=== PATIENT | female | born 1995 | race Caucasian/White ===

== ENCOUNTER 2016-11-05 07:21 | Inpatient (IN) | payer MEDICAID ==
[~2016-11-05] VITALS: Ht 167.6 cm; Wt 112.0 kg
[2016-11-05 07:15] VITALS: BP 128/87
[~2016-11-05 07:21] MED LIST: AMOX-355 PO; CEPH500C PO; HYDR-3812 PO; ONDA4TAB11 PO; SERT25TA5 PO; TRAM50TA2 PO
[2016-11-05] MEDS ORDERED: CITRIC ACID/SOB CIT (BICITRA) 30 ML UDC PO ONE (07:30)
[2016-11-05] MEDS ORDERED: METOCLOPRAMIDE INJ 10 MG/2 ML (REGLAN) IV ONE (07:30)
[2016-11-05] MEDS ORDERED: FAMOTIDINE 20MG/2ML IV (PEPCID) IV ONE (07:30)
[2016-11-05] MEDS: LACTATED RINGERS 1,000 ML IV PRN ×2 (08:02→09:00)
[2016-11-05] MEDS ORDERED: fentaNYL INJECTION 100 MCG/2 ML AMP ONE (08:06)
[2016-11-05 08:10] VITALS: BP 134/84
--- NOTE | 2016-11-05 08:13 | History & Physical-OB ---
OB - Chief Complaint & HPI Date Date of Admission: Date of Admission: Nov 05, 2016 at 7:21 am Chief Complaint/History OB-Reason for Admission/Chief: Section Hx : 2 Hx Para: 1 Expected Date of Delivery: Nov 11, 2016 Indication for : desires repeat Admission Nurse Assessment Rev: Yes History of Labs O neg Antibody neg RI RPR NR HBsAg NR HIV NR GC neg Allergies and Home Medications Allergies Uncoded Allergies: ADVAIR (Allergy, Mild, 03/27/16) Home Medications Sertraline HCl 25 Mg Tablet 25 MG PO HS (Reported) OB - History Hx of Present Care: Yes Ultrasounds: Normal mid trimester US Obstetrical Complications: None Medical Complications: None Delivery History Hx Blood Disorders: No Adverse Rxn to Tranfusion: No Patient Past Medical History anxiety/depression Social History/Family History HIV/AIDS: No Sexually Transmitted Disease: No OB - Admission Exam Physical Exam HEENT: NCAT Heart: Rhythm Normal Lungs: Clear Abdomen: Gravid Extremities: Normal Reflexes: Normal Heart Rate: 130's Accelerations: Accelerations Present Decelerations: No Decelerations Shelter Variability: Average (6-25) Contractions on Admission: >10 Minutes Apart Intensity: Mild OB - Assessment/Plan/Diagnosis Assessment Assessment: section Plan Plan: Section Discharge Diagnosis Diagnosis: 21 yo @ 39 weeks previous Rh NICOLAS Brown DO Nov 05, 2016 8:13 am
[2016-11-05] MEDS ORDERED: ceFAZolin 2 GM IV (SDC ONLY) 50 ML IV NR (08:15)
[2016-11-05 08:24] LABS: BASOPHILS % (AUTO) 0 % (0-10); EOSINOPHILS # (AUTO) 0.1 10^3/uL (0.0-0.3); EOSINOPHILS % (AUTO) 1 % (0-10); LYMPHOCYTES # (AUTO) 2.6 X 10^3 (1.0-4.0); LYMPHOCYTES % (AUTO) 19 % (12-44); MEAN CORPUSCULAR HEMOGLOBIN 28 PG (25-34); MEAN CORPUSCULAR HGB CONC 33 G/DL (32-36); MEAN CORPUSCULAR VOLUME 84 FL (80-99); MEAN PLATELET VOLUME 11.4 FL (7.4-10.4); MONOCYTES # (AUTO) 0.9 X 10^3 (0.0-1.0); MONOCYTES % (AUTO) 7 % (0-12); NEUTROPHILS # (AUTO) 9.9 X 10^3 (1.8-7.8); NEUTROPHILS % (AUTO) 73 % (42-75); PLATELET COUNT 189 10^3/uL (130-400); RED BLOOD COUNT 4.03 10^6/uL (4.35-5.85); RED CELL DISTRIBUTION WIDTH 13.6 % (10.0-14.5); WHITE BLOOD COUNT 13.5 10^3/uL (4.3-11.0)
[2016-11-05] MEDS ORDERED: CATHETER FLUSH 10 ML SYR IV PRN (08:30)
[2016-11-05] MEDS ORDERED: OXYTOCIN/NORMAL SALINE 1,000 ML IV ONE (08:59)
[2016-11-05] MEDS ORDERED: FLU TRIvalent (5 YOA+) 2016-17 (AFLURIA) 0.5 ML IM ONE (09:30)
[2016-11-05] MEDS ORDERED: KETOROLAC 30 MG/ML VIAL ONE (09:32)
[2016-11-05] MEDS ORDERED: OXYTOCIN/NORMAL SALINE 500 ML IV SCH (09:43)
[2016-11-05] MEDS ORDERED: ONDANSETRON 4 MG/2 ML (SDV) Z0FRAN IVP PRN (09:45)
[2016-11-05] MEDS ORDERED: MEASLES,MUMPS,RUBELLA 1 EA INJ SC SCH (09:45)
[2016-11-05] MEDS ORDERED: TETANUS,DIPTH,PERTUSS P/F (BOOSTRIX) 0.5 ML VIAL IM SCH (09:45)
[2016-11-05] MEDS ORDERED: HYDROmorphone (DILAUDID) 2 MG/ML VIAL IVP PRN (09:45)
--- NOTE | 2016-11-05 09:45 | Progress Note-Post Operative ---
Post-Operative Progess Note Asic Verification Engineer Ray Buenrostro MD Pre-Operative Diagnosis Previous Post-Operative Diagnosis same Post-Op Procedure Note Date of Procedure: Nov 05, 2016 Name of Procedure: RLTCS Procedure Note/Findings see dictation Anesthesia Type Spinal Estimated blood loss (mL): 400 NICOLAS GARVIN DO Nov 05, 2016 09:45
[2016-11-05] MEDS ORDERED: DOCU100C37 PO (09:55)
[2016-11-05] MEDS ORDERED: HYDR-3812 PO (09:55)
[2016-11-05] MEDS ORDERED: IBUP-1773 PO (09:55)
--- NOTE | 2016-11-05 09:56 | Discharge Inst-Women's Service ---
Discharge Inst-Women's Serv Depart Medication/Instructions New, Converted or Re-Newed RX: RX on Chart Consults/Follow Up Additional Follow Up: Yes Orders/Referrals Dr. Carreon in 7-[address] Buenrostro in 6 weeks Activity Activity: Activity as Tolerated Driving Instructions: No Driving for 1 Week NO SMOKING: NO SMOKING Nothing Inside Vagina: No Douching, No [place], No Tampons Diet Discharge Diet: No Restrictions Symptoms to Report to : Bleeding Excessive, Pain Increased, Fever Over 101 Degrees F, Vaginal Bleeding Increase, Questions/Concerns Skin/Wound Care Infection Signs and Symptoms: Increased Redness, Foul Odor of Wound, Increased Drainage, Skin Itchy or Has a Rash, Increased Swelling, Temperature Above 101 F Operative Area Clean and Dry: Keep Incision Clean/Dry Stitches/Philip/Dermabond: Care of Stitches Bathing Instructions: NICOLAS Perez DO Nov 05, 2016 9:56 am
[2016-11-05] MEDS: KETOROLAC 30 MG/ML VIAL IVP SCH ×3 (10:04→21:43)
[2016-11-05 14:00] VITALS: BP 141/90
[2016-11-05] MEDS: HYDROcodone/APAP 5 MG/325 MG (LORTAB) TAB PO PRN ×2 (16:01→21:43)
[2016-11-05 17:30] VITALS: BP 125/82
[2016-11-05 19:52] VITALS: BP 115/73
[2016-11-05] MEDS: DOCUSATE SODIUM 100 MG (COLACE) CAP PO SCH (21:42)
[2016-11-05] MEDS: CATHETER FLUSH 10 ML SYR IV SCH (22:00)
[2016-11-06 00:10] VITALS: BP 126/80
[2016-11-06 04:15] VITALS: BP 122/77
[2016-11-06] MEDS: KETOROLAC 30 MG/ML VIAL IVP SCH (04:16)
[2016-11-06] MEDS: CATHETER FLUSH 10 ML SYR IV SCH (04:16)
[2016-11-06 05:49] LABS: BASOPHILS % (AUTO) 0 % (0-10); EOSINOPHILS # (AUTO) 0.2 10^3/uL (0.0-0.3); EOSINOPHILS % (AUTO) 2 % (0-10); LYMPHOCYTES # (AUTO) 2.9 X 10^3 (1.0-4.0); LYMPHOCYTES % (AUTO) 23 % (12-44); MEAN CORPUSCULAR HEMOGLOBIN 28 PG (25-34); MEAN CORPUSCULAR HGB CONC 33 G/DL (32-36); MEAN CORPUSCULAR VOLUME 85 FL (80-99); MEAN PLATELET VOLUME 11.2 FL (7.4-10.4); MONOCYTES # (AUTO) 1.1 X 10^3 (0.0-1.0); MONOCYTES % (AUTO) 9 % (0-12); NEUTROPHILS # (AUTO) 8.3 X 10^3 (1.8-7.8); NEUTROPHILS % (AUTO) 66 % (42-75); PLATELET COUNT 150 10^3/uL (130-400); RED BLOOD COUNT 3.39 10^6/uL (4.35-5.85); RED CELL DISTRIBUTION WIDTH 13.6 % (10.0-14.5); WHITE BLOOD COUNT 12.5 10^3/uL (4.3-11.0)
[2016-11-06] MEDS: HYDROcodone/APAP 5 MG/325 MG (LORTAB) TAB PO PRN ×4 (06:29→19:41)
[2016-11-06 09:40] VITALS: BP 129/84
[2016-11-06] MEDS: DOCUSATE SODIUM 100 MG (COLACE) CAP PO SCH ×2 (09:45→19:41)
[2016-11-06] MEDS: IBUPROFEN 600 MG (MOTRIN) TAB PO SCH ×3 (09:45→22:00)
--- NOTE | 2016-11-06 10:04 | OPERATIVE REPORT ---
PROCEDURE PHYSICIAN: JAVIER CARREON DATE OF PROCEDURE: 11/05/2016 PREOPERATIVE DIAGNOSIS: 1. 21-year-old G2, P1 at 39 weeks gestation. 2. Previous section. POSTOPERATIVE DIAGNOSES: 1. 21-year-old G2, P1, at 39 weeks gestation. 2. Previous section. 3. Breech presentation. PROCEDURE: Repeated low transverse section. SURGEON: Dr. Javier Carreon. ROLLER SKATE ASSEMBLER: Dr. Ray Buenrostro ANESTHESIA: Spinal. ESTIMATED BLOOD LOSS: 400 mL. URINE OUTPUT: 50 mL, clear at the end of the procedure. FLUIDS: 900 mL lactated ringer solution. FINDINGS: Findings is a live female infant weighing 8 pounds, 2 ounces, Apgars of 9 and 9. Grossly normal appearing uterus, bilateral fallopian tubes, and ovaries. INDICATIONS FOR THE PROCEDURE: This 21-year-old female was a consultation to me from Dr. Buenrostro for repeat delivery at 34 weeks. I saw the patient and reviewed the indications for repeat and that being a previous . However, the patient had a secondary indication for and that was breech presentation which was also the case with her first . I discussed with the patient risks of the procedure in detail including risk of bleeding, infection, damaging any of the surrounding structures, including but not limited to the bowel, bladder, ureter, kidneys, risk for blood transfusion, risk for hysterectomy, risk of possible loss of fertility. After everything was discussed with the patient and all of her questions were answered, she was agreeable to proceed. Consent was obtained in the preoperative area. The patient was taken to the operating room. OPERATIVE REPORT IN DETAIL: Once in the operating room, spinal analgesia was found to be adequate. She was placed in supine position with leftward tilt, prepped and draped in the normal sterile fashion. A timeout is performed. I then test anesthesia and after it is noted to be adequate, I proceed with making a Pfannenstiel skin incision through the previously existing scar using a knife and carried down to underlying fascia using Bovie cautery. The fascial incision was extended laterally using Bovie cautery. The superior aspect of the fascial incision was then grasped using Domingo clamps, tented upward and dissected off the underlying rectus muscle. The inferior aspect of the fascial incision was then grasped her with Domingo clamps, tented upward and dissected off the underlying rectus muscles. The rectus muscles are dissected in midline using Hutton scissors which exposes the extra peritoneal fatty tissue. I bluntly dissect through this until the peritoneum is accessed by blunt dissection. I extend the peritoneal incision superior and inferiorly with good visualization of underlying bowel and bladder using the Metzenbaum scissors. I then placed the Franco ring retractor in the peritoneal incision which offers excellent lateral sidewall retraction. I proceed with my incision through the lower uterine segment of the uterus using a knife just to the vesicouterine peritoneum and bluntly dissect the vesicouterine peritoneum off the lower uterine segment. I proceed with my myotomy until membranes are visualized. I extend the uterine incision laterally and superiorly using banded scissors. I then perform amniotomy using an Allis clamp. Clear fluid is noted. The is found in the kallie breech presentation. Its buttocks are lifted up to the incision. With gentle fundal pressure the 's buttocks is delivered through the incision and the infant is delivered up to its chest where the legs are able to be reduced around the body. I then deliver the arms by sweeping them across the 's chest and then with gentle extension of the baby's neck, I allow for flexion and delivery of the infants head through the incision where the 's nares and oropharynx are then bulb suctioned by Dr. Buenrostro. The cord is doubly clamped and cut and the infant is then taken off the operative field by Dr. Buenrostro for pediatric assessment. The cord blood was collected, three vessel cord with intact placenta is delivered spontaneously thereafter. IV Pitocin is initiated to facilitate uterine contraction. The uterine fundus becomes firmer by manual massage. The uterus is then exteriorized and cleared of all endometrial, clots and debris. I then close the uterus incision using 0 Vicryl suture in a running lock fashion. A second layer of imbricating 0 Monocryl is placed. Excellent hemostasis is noted after doing so. I then placed the uterus back within the pelvis, I copiously irrigate the pelvis using normal saline. There was no active bleeding noted from any of my dissection planes. I place intercede antiadhesive over my low transverse incision and proceed with closing the peritoneum using 3-0 Vicryl suture in a running fashion. The rectus muscles are reapproximated using 3-0 Vicryl suture in an interrupted fashion. The fascia was reapproximated using 0 Vicryl suture in a running fashion. Subcutaneous tissues were reapproximated using 3-0 plain in an interrupted subcutaneous stitch and skin was reapproximated using 4-0 Monocryl in running, subcuticular. Quarter-inch Steri-Strips were placed on the incision and this is dressed with a Telfa and an ADD and white tape. Sousa catheter was left in place to be taken out in the recovery area. The patient tolerated the procedure well and was taken to the recovery area in stable condition. Lap and sponge counts were correct at the end of procedure. Instrument count is correct as well. 2 grams Ancef were given preoperatively for infection prophylaxis. Job ID: [id number] Dictated Date: 11/05/2016 09:50:20 Inner Tube Tuber Machine Operator Date: 11/06/2016 09:46:15 / mook
--- NOTE | 2016-11-06 10:17 | Postpartum Progress Note ---
Post Op Post-operative Day #1 s/p RLTCS, repeat and breech. 400 ml blood los Subjective: Patient is without complaints. Ambulating, voiding after gonzalez removed. Tolerating a regular diet without nausea or vomiting. Normal lochia. Pain is well controlled with oral pain medications. Passing flatus. bottle feeding. Objective: Vital Sign - Last 24 Hours 11/05/16 11/05/16 11/05/16 11/05/16 12:11 14:00 17:30 19:52 Temp 97.0 97.3 97.6 Pulse 111 85 80 Resp 18 18 16 B/P 141/90 125/82 115/73 Pulse Ox 96 98 97 O2 Delivery Room Air Room Air Room Air Room Air 11/06/16 11/06/16 00:10 04:15 Temp 97.4 96.9 Pulse 79 88 Resp 16 18 B/P 126/80 122/77 Pulse Ox 96 97 O2 Delivery Room Air Room Air Intake and Output 11/05/16 11/05/16 11/06/16 15:00 23:00 07:00 Intake Total 1150 ml 1200 ml 1300 ml Output Total 1850 ml 350 ml 1500 ml Balance -700 ml 850 ml -200 ml Laboratory Tests Test 11/06/16 05:31 Range/Units Basophils # (Auto) 0.0 0.0-0.1 10^3/uL Basophils (%) (Auto) 0 0-10 % Eosinophils # (Auto) 0.2 0.0-0.3 10^3/uL Eosinophils (%) (Auto) 2 0-10 % Hematocrit 29 L 35-52 % Hemoglobin 9.4 L 11.5-16.0 G/DL Lymphocytes # (Auto) 2.9 1.0-4.0 X 10^3 Lymphocytes (%) (Auto) 23 12-44 % Mean Corpuscular Hemoglobin 28 25-34 PG Mean Corpuscular Hemoglobin Concent 33 32-36 G/DL Mean Corpuscular Volume 85 80-99 FL Mean Platelet Volume 11.2 H 7.4-10.4 FL Monocytes # (Auto) 1.1 H 0.0-1.0 X 10^3 Monocytes (%) (Auto) 9 0-12 % Neutrophils # (Auto) 8.3 H 1.8-7.8 X 10^3 Neutrophils (%) (Auto) 66 42-75 % Platelet Count 150 130-400 10^3/uL Red Blood Count 3.39 L 4.35-5.85 10^6/uL Red Cell Distribution Width 13.6 10.0-14.5 % White Blood Count 12.5 H 4.3-11.0 10^3/uL Physical Exam: General - Alert and oriented, no apparent distress Abdomen - Soft, appropriately tender to palpation, non-distended, fundus firm at umbilicus Incision - clean, dry and intact; no erythema or induration, no drainage Extremities - no edema, negative Chandu's bilaterally Assessment: 1. post-operative day # 1, status post RLTCS. Recovering well, hemodynamically stable 2. Acute blood loss anemia Plan: Routine post-operative care. Encourage breast feeding. Encourage ambulation. VTE prophylaxis: SCDs. Ferrous sulfate supplementation. Plan for discharge tomorrow. Will monitor BP but currently asymptomatic despite blood loss. Iron replaced. Vitals - Labs Vital Signs - I&O Vital Signs Date Time Temp Pulse Resp B/P Pulse Ox O2 Delivery O2 Flow Rate FiO2 11/06/16 04:15 96.9 88 18 122/77 97 Room Air 11/06/16 00:10 97.4 79 16 126/80 96 Room Air 11/05/16 19:52 97.6 80 16 115/73 97 Room Air 11/05/16 17:30 97.3 85 18 125/82 98 Room Air 11/05/16 14:00 97.0 111 18 141/90 96 Room Air 11/05/16 12:11 Room Air I & O 11/06/16 07:00 Intake Total 3650 ml Output Total 3700 ml Balance -50 ml Labs Laboratory Tests 11/06/16 05:31: Basophils # (Auto) 0.0, Basophils (%) (Auto) 0, Eosinophils # (Auto) 0.2, Eosinophils (%) (Auto) 2, Hematocrit 29L, Hemoglobin 9.4L, Lymphocytes # (Auto) 2.9, Lymphocytes (%) (Auto) 23, Mean Corpuscular Hemoglobin 28, Mean Corpuscular Hemoglobin Concent 33, Mean Corpuscular Volume 85, Mean Platelet Volume 11.2H, Monocytes # (Auto) 1.1H, Monocytes (%) (Auto) 9, Neutrophils # ( Auto) 8.3H, Neutrophils (%) (Auto) 66, Platelet Count 150, Red Blood Count 3.39L , Red Cell Distribution Width 13.6, White Blood Count 12.5H KAYLYN TORRES DO Nov 06, 2016 10:17
[2016-11-06] MEDS ORDERED: PATIENT MAY USE OWN MED,SINGLE MED PO SCH (10:30)
[2016-11-06 15:15] VITALS: BP 146/87
[2016-11-06] MEDS: FERROUS SULF 325 MG (IRON) TAB PO SCH (19:41)
[2016-11-06] MEDS ORDERED: SERTRALINE 50 MG (ZOLOFT) TABLET PO SCH (21:00)
[2016-11-06 22:00] VITALS: BP 128/86
[2016-11-07 04:00] VITALS: BP 122/80
[2016-11-07] MEDS: IBUPROFEN 600 MG (MOTRIN) TAB PO SCH ×3 (04:01→17:28)
[2016-11-07 09:00] VITALS: BP 109/78
--- NOTE | 2016-11-07 09:56 | Postpartum Progress Note ---
Post Op Post-operative Day #2 Subjective: Patient is without complaints. Ambulating, voiding after gonzalez removed. Tolerating a regular diet without nausea or vomiting. Normal lochia. Pain is well controlled with oral pain medications. Passing flatus. bottle feeding. No current complaints. Objective: Vital Sign - Last 24 Hours 11/06/16 11/06/16 11/07/16 15:15 22:00 04:00 Temp 98.6 97.7 97.5 Pulse 90 89 95 Resp 18 18 18 B/P 146/87 128/86 122/80 Pulse Ox 98 98 97 O2 Delivery Room Air Room Air Room Air Intake and Output 11/06/16 11/06/16 11/07/16 15:00 23:00 07:00 Intake Total 900 ml 750 ml Output Total 1150 ml Balance -250 ml 750 ml Physical Exam: General - Alert and oriented, no apparent distress Abdomen - Soft, appropriately tender to palpation, non-distended, fundus firm at umbilicus Incision - clean, dry and intact; no erythema or induration, no drainage Extremities - no edema, negative Chandu's bilaterally Assessment: 1. post-operative day # 1 status post RLTCS. Recovering well, hemodynamically stable 2. Acute blood loss anemia Plan: Routine post-operative care. Encourage breast feeding. Encourage ambulation. VTE prophylaxis: SCDs. Ferrous sulfate supplementation. Plan for discharge today Vitals - Labs Vital Signs - I&O Vital Signs Date Time Temp Pulse Resp B/P Pulse Ox O2 Delivery O2 Flow Rate FiO2 11/07/16 04:00 97.5 95 18 122/80 97 Room Air 11/06/16 22:00 97.7 89 18 128/86 98 Room Air 11/06/16 15:15 98.6 90 18 146/87 98 Room Air I & O 11/07/16 07:00 Intake Total 1650 ml Output Total 1150 ml Balance 500 ml KAYLYN TORRES DO Nov 07, 2016 09:56
[2016-11-07] MEDS: DOCUSATE SODIUM 100 MG (COLACE) CAP PO SCH (10:40)
[2016-11-07] MEDS: FERROUS SULF 325 MG (IRON) TAB PO SCH ×2 (10:41→19:31)
[2016-11-07] MEDS: HYDROcodone/APAP 5 MG/325 MG (LORTAB) TAB PO PRN ×3 (10:42→19:31)
[2016-11-07] MEDS ORDERED: FERR-74 PO (11:17)
[2016-11-07 15:05] VITALS: BP 118/81
== END 2016-11-07 19:45 | disposition home or self-care (01) | DRG 766 ==
LOC: LDRP 07:21
PROVIDERS: ADMIT Obstetrics & Gynecology; ATTEND Obstetrics & Gynecology
PROC: 10D00Z1 Extraction of Products of Conception, Low, Open Approach (ICD-10-PCS; principal; 2016-11-05 08:58)
DX: O64.1XX0 Obstructed labor due to breech presentation, not applicable or unspecified (principal); O34.211 Maternal care for low transverse scar from previous cesarean delivery; Z37.0 Single live birth; Z3A.39 39 weeks gestation of pregnancy
CPT/HCPCS: 36415; 83033; 85025; 86850; 86900; 86901; 94664

== ENCOUNTER 2016-11-24 10:10 | Emergency (ER) | payer MEDICAID ==
[~2016-11-24] VITALS: Ht 167.6 cm; Wt 112.0 kg
[~2016-11-24 10:10] MED LIST changes: +DOCU100C37 PO; +FERR-74 PO; +IBUP-1773 PO
[2016-11-24] MEDS ORDERED: LEVOFLOXACIN 500 MG TAB (LEVAQUIN) PO STA (11:25)
[2016-11-24] MEDS ORDERED: HYDROcodone/APAP 5 MG/325 MG (LORTAB) TAB PO STA (11:25)
[2016-11-24] MEDS ORDERED: metroNIDAZOLE 500 MG (FLAGYL) TAB PO STA (11:25)
--- NOTE | 2016-11-24 11:33 | ED General ---
General Chief Complaint: Skin/Wound Problems Stated Complaint: TAILBONE ABSCESS Nursing Triage Note: PT. STATES RANGEL WEIR HURTS MORE TODAY ET HAS LOTS OF PRESSURE TO AREA. Nursing Sepsis Screen: No Definite Risk Source of Information: Patient, Family Exam Limitations: No Limitations History of Present Illness Time Seen by Provider: 11:27 Initial Comments 21 yo female patient presents to the ED with c/o recurrent pilonidal abscess. Onset 3-4 days. Denies fever, chills, drainage. Patient is 3 wks . Denies . Timing/Duration: 3-4 Days Modifying Factors: worse with Other (sitting, palpation.) Allergies and Home Medications Allergies Coded Allergies: fluticasone (Unverified Allergy, Unknown, 11/05/16) salmeterol (Unverified Allergy, Unknown, 11/05/16) Home Medications Ciprofloxacin HCl 500 Mg Tablet #14 500 MG PO BID Prescribed by: TIKA HERNANDEZ on 11/24/16 1142 Docusate Sodium 100 Mg Capsule #40 100 MG PO BID PRN PRN CONSTIPATION Prescribed by: NICOLAS GARVIN on 11/05/16 0955 Ferrous Sulfate 325 Mg Tablet #120 325 MG PO BID WITH MEALS Prescribed by: KAYLYN TORRES on 11/07/16 1117 Ibuprofen 600 Mg Tablet #80 600 MG PO Q6H Prescribed by: NICOLAS GARVIN on 11/05/16 0955 Metronidazole 500 Mg Tablet #21 500 MG PO TID Prescribed by: TIKA HERNANDEZ on 11/24/16 1142 Sertraline HCl 25 Mg Tablet 25 MG PO HS (Reported) Tramadol HCl 50 Mg Tablet #14 50 MG PO Q4H PRN PRN PAIN Prescribed by: TIKA HERNANDEZ on 11/24/16 1149 Constitutional: No chills, No fever, No malaise Respiratory: no symptoms reported Cardiovascular: no symptoms reported Gastrointestinal: no symptoms reported Genitourinary: no symptoms reported Skin: see HPI lumps (gluteal cleft) Psychiatric/Neurological: No Symptoms Reported All Other Systems Reviewed Negative Unless Noted: Yes (Negative excepted noted.) Past Pgzybar-Rtosrn-Cxngfa Hx Patient Social History Alcohol Use: Rarely Uses Recreational Drug Use: No Smoking Status: Never a Smoker Recent Foreign Travel: No Contact w/Someone Who Travel: No Recent Infectious Disease Expo: No Recent Hopitalizations: Yes (C-CESTION 11/05/16) Physical Abuse Screen: No Sexual Abuse: No Immunizations Up To Date Tetanus Booster (TDap): Unknown Seasonal Allergies Seasonal Allergies: No Surgeries HX Surgeries: Yes (c/s X 1, dental) Surgeries: Tonsillectomy Respiratory Hx Respiratory Disorders: No Cardiovascular Hx Cardiac Disorders: No Neurological Hx Neurological Disorders: Yes Neurological Disorders: Headaches /Migraines Reproductive System : No Hx Reproductive Disorders: No Sexually Transmitted Disease: No HIV/AIDS: No Genitourinary Hx Genitourinary Disorders: No Gastrointestinal Hx Gastrointestinal Disorders: No Gastrointestinal Disorders: Gastroesophageal Reflux Musculoskeletal Hx Musculoskeletal Disorders: No Endocrine Hx Endocrine Disorders: No HEENT HX ENT Disorders: No Cancer Hx Cancer: No Psychosocial Hx Psychiatric Problems: Yes Behavioral Health Disorders: ADD/ADHD, Depression Integumentary HX Skin/Integumentary Disorder: No Blood Transfusions Hx Blood Disorders: No Adverse Reaction to a Blood Tr: No Reviewed Nursing Assessment Reviewed/Agree w Nursing PMH: Yes Family Medical History Significant Family History: No Pertinent Family Hx Family Medial History: Not obtainable due to adoption Physical Exam Vital Signs Vital Sign - Last 12Hours 11/24/16 10:44 Temp 99.7 Pulse 104 Resp 18 B/P 119/80 Pulse Ox 100 O2 Delivery Room Air Capillary Refill : Less Than 3 Seconds General Appearance: No Apparent Distress WD/WN Back: Normal Inspection Extremity: Normal Capillary Refill Normal Inspection Neurologic/Psychiatric: Alert Oriented x3 Normal Mood/Affect Skin: Normal Color Warm/Dry Other (mild erythema, swelling, and tenderness of the gluteal cleft. (+) fluctuance.) Progress/Results/Core Measures Results/Orders My Orders Orders-TIKA HERNANDEZ Hydrocodone/Apap 5/325 Tablet (Lortab 5 (11/24/16 11:25) Levofloxacin Tablet (Levaquin Tablet) (11/24/16 11:25) Metronidazole Tablet (Flagyl Tablet) (11/24/16 11:25) Vital Signs/I&O Vital Sign - Last 12Hours 11/24/16 10:44 Temp 99.7 Pulse 104 Resp 18 B/P 119/80 Pulse Ox 100 O2 Delivery Room Air Blood Pressure Mean: 93 Departure Communication Progress Notes Patient seen and evaluated. Patient refuses incision and drainage of the pilonidal cyst. States she only wants antibiotics and pain medication at this time. I discussed risk, benefits, and possible complications associated with not performing the incision and drainage versus incision and drainage of the pilonidal abscess. Patient voices understanding and continues to refuse procedure. States she'll follow-up with a general surgeon for excision as an outpatient. Plan for discharge to home with oral Cipro, metronidazole, and tramadol. Dr. Bustamante notified of patient's refusal for incision and drainage. Impression Impression: Primary Impression: Pilonidal abscess Disposition: HOME, SELF-CARE Condition: Improved Departure-Patient Inst. Decision time for Depature: 11:40 Referrals: [facility] (PCP/Family) Primary Care Physician Patient Instructions: Pilonidal Cyst (DC) Add. Discharge Instructions: All discharge instructions reviewed with patient and/or family. Voiced understanding. Medications as instructed. Motrin 800 mg by mouth every 8 hours as needed for pain. Follow-up with the general surgeon of your choice for recheck and discussion of possible pilonidal cyst excision. Call for appointment time. Return to the emergency department for worsened redness, fever, drainage, or any other concerns. Scripts Tramadol HCl 50 Mg [id number] Mg PO Q4H PRN PAIN #14 TAB Ref 0 Prov:TIKA HERNANDEZ 11/24/16 Metronidazole 500 Mg [id number] Mg PO TID #21 TAB Ref 0 Prov:TIKA HERNANDEZ 11/24/16 Ciprofloxacin HCl 500 Mg [id number] Mg PO BID #14 TAB Ref 0 Prov:TIKA HERNANDEZ 11/24/16 TIKA HERNANDEZ Nov 24, 2016 11:33
[2016-11-24] MEDS ORDERED: HYDR-3812 PO (11:42)
[2016-11-24] MEDS ORDERED: METR500T21 PO (11:42)
[2016-11-24] MEDS ORDERED: CIPR500T4 PO (11:42)
[2016-11-24] MEDS ORDERED: TRAM50TA2 PO (11:49)
[2016-11-24 11:55] VITALS: BP 116/74
== END 2016-11-24 11:55 | disposition home or self-care (01) ==
LOC: EDUNIT# 10:10 → ER 10:12
DX: L05.01 Pilonidal cyst with abscess (principal)
CPT/HCPCS: 99283

== ENCOUNTER → 2018-03-02 | Outpatient (CLI) | payer MEDICAID ==
[~2018-03-02] MED LIST changes: +ACHD5005 PO; +CIPR500T4 PO; -FERR-74 PO; +FERR325T18 PO; -HYDR-3812 PO; +METR500T21 PO
--- NOTE | 2018-03-02 16:07 | Diagnostic Imaging Report ---
PROCEDURE: US OB SINGLE FETUS <14 WKS. TECHNIQUE: Multiple real-time grayscale images were obtained over the gravid uterus in various projections. INDICATION: dating. FINDINGS: There is an intrauterine gestational sac containing a pole. [place]-rump length measurement is 5.2 cm consistent with 12 weeks 0 days gestation. heart rate was recorded at 161 beats per minute. No perigestational sac hemorrhage is seen. Ovaries are unremarkable bilaterally. IMPRESSION: Single live IUP of 12 weeks 0 days gestational age. The estimated date of confinement sonographically is 09/24/2018. Dictated by: Dictated on workstation # [id number]
== END ==
LOC: RAD 11:24
PROVIDERS: ATTEND Family Medicine
DX: Z34.81 Encounter for supervision of other normal pregnancy, first trimester (principal); Z3A.12 12 weeks gestation of pregnancy
CPT/HCPCS: 76801

== ENCOUNTER → 2018-04-27 | Outpatient (CLI) | payer MEDICAID ==
--- NOTE | 2018-04-27 15:35 | Diagnostic Imaging Report ---
INDICATION: Supervision of normal . TECHNIQUE: Multiple real-time grayscale images were obtained over the gravid uterus. COMPARISON: 03/02/2018. FINDINGS: There is a single live fetus in a variable presentation. The placenta is posterior. The amniotic fluid volume is normal. heart rate was recorded at 167 beats per minute. Cervical length is 5.4 cm. survey demonstrates kidneys, bladder, and stomach to be unremarkable. brain is unremarkable. There is a four-chamber heart. There is a three-vessel cord with normal cord insertion. The spine is unremarkable. Biometrical measurements are as follows: Biparietal 4.92 cm, age 21 weeks 0 days. Head circumference 17.62 cm, age 20 weeks 1 days. Abdominal circumference 15.86 cm, age 21 weeks 0 days. Femur length 3.00 cm, age 19 weeks 2 days. Sonographic estimate age: 20 weeks 3 days. Sonographic estimated date of delivery: 09/11/2018. Estimated Weight: 339 gm (+/- 50 gm). LMP percentile: 98%. heart rate: 167 beats per minute. number: 1 of 1. IMPRESSION: Single live IUP at 20 weeks 3 days gestational age. This demonstrates normal interval growth when compared with examination from 03/02/2018. Dictated by: Dictated on workstation # [id number]
== END ==
LOC: RAD 13:39
PROVIDERS: ATTEND Family Medicine
DX: Z34.92 Encounter for supervision of normal pregnancy, unspecified, second trimester (principal); Z3A.20 20 weeks gestation of pregnancy
CPT/HCPCS: 76805

== ENCOUNTER 2018-08-24 17:56 | Outpatient (CLI) | payer MEDICAID ==
[~2018-08-24] VITALS: Ht 167.6 cm; Wt 112.0 kg
[2018-08-24 17:56] VITALS: BP 120/71
[2018-08-24] MEDS ORDERED: FLU QUADRIvalent (5+ YOA) 2018-2019 (AFLURIA) 0.5 ML IM ONE (19:15)
[2018-08-24] MEDS ORDERED: METO-310 PO ×2 (19:22)
[2018-08-24] MEDS ORDERED: PREN-142 PO ×2 (19:22)
[2018-08-24] MEDS ORDERED: NS IV 1000 ML 1,000 ML ONE (19:25)
[2018-08-24] MEDS ORDERED: NS IV 1000 ML 1,000 ML IV ONE (19:30)
--- NOTE | 2018-08-28 21:01 | Physician Query-Final Dx ---
PATRICE BANUELOS 08/28/18 2101: Clinic Account Progress/Dx Physician Query: Please give diagnosis Please give diagnosis and weeks of gestation. Date of Service Aug 24, 2018 at 17:56 SLY MANRIQUE MD 09/01/18 0724: Clinic Account Progress/Dx DIAGNOSIS: Diagnosis 1. Uterine irritability, non-labor 2. IUP at 36 weeks. PATRICE BANUELOS Aug 28, 2018 21:01 SLY MANRIQUE MD Sep 01, 2018 07:24
== END 2018-08-24 20:38 | disposition home or self-care (01) ==
LOC: WSo 17:56 → LDRP 17:57 → WSo 20:38
PROVIDERS: ATTEND Family Medicine
DX: O62.2 Other uterine inertia (principal); Z3A.36 36 weeks gestation of pregnancy
CPT/HCPCS: 99213

== ENCOUNTER 2018-08-31 14:30 | Outpatient (CLI) | payer MEDICAID ==
[~2018-08-31] VITALS: Ht 167.6 cm; Wt 119.7 kg
[~2018-08-31 14:30] MED LIST changes: +METO-310 PO; +PREN-142 PO
== END 2018-08-31 15:07 | disposition home or self-care (01) ==
LOC: PREOP 14:30
PROVIDERS: ATTEND Obstetrics & Gynecology
DX: Z01.818 Encounter for other preprocedural examination (principal)

== ENCOUNTER 2018-09-07 06:00 | Inpatient (IN) | payer MEDICAID ==
[~2018-09-07] VITALS: Ht 165.1 cm; Wt 118.8 kg
[~2018-09-07 06:00] MED LIST changes: +CITRIC ACID/SOB CIT (BICITRA) 30 ML UDC ONE; +FAMOTIDINE 20MG/2ML IV (PEPCID) ONE; +LACTATED RINGERS 1,000 ML IV ONE; +METOCLOPRAMIDE INJ 10 MG/2 ML (REGLAN) ONE; +METR-197 PO; -METR500T21 PO
--- OUTSIDE RECORDS SUMMARY | 2018-09-07 06:17 | XMS REPORT ---
Author Author SLY MANRIQUE Organization [facility] Address [address] [place] [address] Care Team Providers Care Force Adjustment Supervisor Name Role Phone SLY MANRIQUE Unavailable PROBLEMS Type Condition ICD9-CM Code [id number] Code Onset Dates Condition Status SNOMED Code Problem Major depressive disorder, recurrent episode, moderate F33.1 Active 201874394 Problem Posttraumatic stress disorder F43.10 Active 56853172 Problem Rh negative status during , second trimester O09.892 Active 518619059 Problem Rh negative status during in third trimester O09.893 Active 310179865 Problem Post traumatic stress disorder F43.10 Active 65182338 Problem Unspecified mood [affective] disorder F39 Active 15042186 ALLERGIES No Information ENCOUNTERS Encounter Location Date Diagnosis [facility] IN [facility] [id number] [place] [address] 05741 -4227 Aug, Viral illness B34.9 and BMI 40.0-44.9, adult Z68.41 [facility] [id number] [place] [address] 05013- 5757 24 Aug, 2018 Third trimester Z34.93 [facility] [id number] [place] [address] 48017- 9816 16 Aug, 2018 Third trimester Z34.93 and 36 weeks gestation of Z3A.36 [facility] [id number] [place] [address] 77913- 9540 Aug, BMI 40.0-44.9, adult Z68.41 ; Third trimester Z34.93 and Encounter for immunization Z23 [facility] [id number] [place] [address] 62574- 9251 Jul, BMI 40.0-44.9, adult Z68.41 and Third trimester Z34.93 [place] [address] [address] Jul, Encounter for supervision of normal , unspecified, third trimester Z34.93 [place] [id number] [place] [address] 57649- 3330 Jun, Third trimester Z34.93 and Encounter for immunization Z23 [place] [id number] [place] [address] 92604- 2398 Jun, Second trimester Z34.92 [place] [id number] [place] [address] 84728- 5504 Jun, Second trimester Z34.92 [place] [id number] [place] [address] 46842- 0399 Jun, BMI 40.0-44.9, adult Z68.41 and Second trimester Z34.92 [place] [id number] [place] [address] 99712- 2604 Jun, Screening for deficiency anemia Z13.0 [place] [id number] [place] [address] 87483- 3869 May, Second trimester Z33.1 [place] [id number] [place] [address] 07130- 7528 Apr, Encounter for supervision of normal in second trimester Z34.92 [place] [id number] [place] [address] 25697- 5472 March, care in second trimester Z34.92 [place] [id number] [place] [address] 98366- 6829 Feb, Normal in multigravida Z34.80 [place] [id number] [place] [address] 46903- 4896 Jan, [place] [id number] [place] [address] 38306- 2558 Jan, Encounter for test, result unknown Z32.00 [facility] [id number] [place] [address] 13734- 4587 Apr, Posttraumatic stress disorder F43.10 and Major depressive disorder, recurrent episode, moderate F33.1 [facility] [id number] [place] [address] 57353- 6328 13 Apr, 2017 Posttraumatic stress disorder F43.10 and Major depressive disorder, recurrent episode, moderate F33.1 [facility] [id number] [place] [address] 70964- 7331 Apr, [place] [id number] [place] [address] 99170- 9655 Apr, Unspecified mood [affective] disorder F39 and Post traumatic stress disorder F43.10 [place] [id number] [place] [address] 66945- 5958 Apr, Post traumatic stress disorder F43.10 and Unspecified mood [ affective] disorder F39 [place] [id number] [place] [address] 55540- 3708 March, Unspecified mood [affective] disorder F39 [facility] [address] [place] [address] Dec, [facility] [id number] [place] [address] 64637- 6174 Oct, 39 weeks gestation of Z3A.39 [place] [id number] [place] [address] 89913- 7096 Oct, 38 weeks gestation of Z3A.38 [place] [id number] [place] [address] 54750- 7609 14 Oct, 2016 Third trimester at less than 36 weeks Z33.1 [facility] [id number] [place] [address] 41051- 6012 07 Oct, 2016 Normal in multigravida Z34.80 [place] [id number] [place] [address] 93546- 1046 Sep, 35 weeks gestation of Z3A.35 [place] [address] [place] [address] 540628- 0355 17 Sep, 2016 Rh negative status during in third trimester O09.893 [place] [id number] [place] [address] 82445- 7385 16 Sep, 2016 Third trimester at less than 36 weeks Z33.1 [place] [id number] [place] [address] 582038- 6783 02 Sep, 2016 Normal in multigravida Z34.80 [place] [id number] [place] [address] 454268- 3158 Aug, 29 weeks gestation of Z3A.29 [place] [id number] [place] [address] 42518- 8032 Aug, 29 weeks gestation of Z3A.29 [place] [id number] [place] [address] 20807- 3923 Aug, Normal in multigravida Z34.80 [place] [id number] [place] [address] 83409- 8532 Jun, IMMUNIZATIONS No Known Immunizations SOCIAL HISTORY Never Assessed REASON FOR VISIT OB 2wk f/u, no gbs needed-csection, tdap-refused, flu shot-refused, Urine OB dip -awoods PLAN OF CARE Activity Details Follow Up 1 Week Reason: Pending Test UA OB DIP (IN HOUSE) VITAL SIGNS Height 66 in 2018-08-16 Weight 263.6 lbs 2018-08-16 Temperature 98.6 degrees Fahrenheit 2018-08-16 Heart Rate 80 bpm 2018-08-16 Respiratory Rate 20 2018-08-16 BMI 42.546 kg/m2 2018-08-16 Blood pressure systolic 118 mmHg 2018-08-16 Blood pressure diastolic 74 mmHg 2018-08-16 MEDICATIONS Medication Instructions Dosage Frequency Start Date End Date Duration Status Sertraline HCl 50 mg Orally Once a day 1 tablet 24h Jul, 30 day (s) Active Cephalexin 500 mg Orally 3 times a day 1 capsule 8h 10 Aug, 2018 Aug, 10 day(s) Active Sertraline HCl 50 mg Orally Once a day 1 tablet 24h Feb, 30 day (s) Not-Taking Active Sertraline HCl 25 MG Orally Once a day 1 tablet 24h Sep, 30 day (s) Not-Taking Omeprazole 10 mg Orally Once a day 2 capsules 24h Sep, 30 day(s ) Not-Taking Prozac 20 mg Orally Once a day 1 capsule in the morning 24h Apr, 30 day(s) Not-Taking Reglan 5 mg Orally every 8 hours 1 tablet as needed 8h 11 May, 2018 Active RESULTS No Results PROCEDURES Procedure Date Ordered Result Body Site URINE-NO MICRO Aug 16, 2018 INSTRUCTIONS MEDICATIONS ADMINISTERED No Known Medications MEDICAL (GENERAL) HISTORY Type Description Date Medical History anxiety Medical History depression Medical History lower lumbar scoliosis Medical History migraines Surgical History section x2 Surgical History tonsillectomy Surgical History extraction of tooth Hospitalization History Childbirth Only
--- OUTSIDE RECORDS SUMMARY | 2018-09-07 06:17 | XMS REPORT ---
Author Author SLY MANRIQUE Organization [facility] Address [address] [place] [address] Care Team Providers Care Sugar Cane Grower Name Role Phone SLY MANRIQUE Unavailable PROBLEMS Type Condition ICD9-CM Code [id number] Code Onset Dates Condition Status SNOMED Code Problem Major depressive disorder, recurrent episode, moderate F33.1 Active 628059271 Problem Posttraumatic stress disorder F43.10 Active 10002272 Problem Rh negative status during , second trimester O09.892 Active 089767706 Problem Rh negative status during in third trimester O09.893 Active 259845993 Problem Post traumatic stress disorder F43.10 Active 17868281 Problem Unspecified mood [affective] disorder F39 Active 15422155 ALLERGIES Substance Reaction Event Type Date Status Advair Diskus anaphylaxis Drug Allergy Aug, Active ENCOUNTERS Encounter Location Date Diagnosis [facility] IN [facility] [id number] [place] [address] 04601 -8822 Aug, Viral illness B34.9 and BMI 40.0-44.9, adult Z68.41 [facility] [address] [place] [address] 17957- 5851 Aug, Third trimester Z34.93 [facility] [id number] [place] [address] 94457- 6648 Aug, Third trimester Z34.93 and 36 weeks gestation of Z3A.36 [facility] [address] 52982- 4579 Aug, BMI 40.0-44.9, adult Z68.41 ; Third trimester Z34.93 and Encounter for immunization Z23 [facility] [id number] [place] [address] 54553- 6317 Jul, BMI 40.0-44.9, adult Z68.41 and Third trimester Z34.93 [place] [id number] [place] [address] 59261- 1520 Jul, Encounter for supervision of normal , unspecified, third trimester Z34.93 [place] [id number] [place] [address] 53361- 6551 Jun, Third trimester Z34.93 and Encounter for immunization Z23 [place] [id number] [place] [address] 39010- 6190 Jun, Second trimester Z34.92 [place] [address] 73784- 8395 Jun, Second trimester Z34.92 [place] [id number] [place] [address] 59960- 7270 Jun, BMI 40.0-44.9, adult Z68.41 and Second trimester Z34.92 [place] [id number] [place] [address] 64093- 9463 Jun, Screening for deficiency anemia Z13.0 [place] [id number] [place] [address] 96262- 0900 May, Second trimester Z33.1 [place] [id number] [place] [address] 97217- 5244 Apr, Encounter for supervision of normal in second trimester Z34.92 [place] [id number] [place] [address] 11619- 3267 March, care in second trimester Z34.92 [place] [id number] [place] [address] 95261- 3142 Feb, Normal in multigravida Z34.80 [place] [id number] [place] [address] 09137- 7098 Jan, [place] [address] [place] [address]- 36[address] Jan, Encounter for test, result unknown Z32.00 [place] [id number] [place] [address] 04669- 3548 Apr, Posttraumatic stress disorder F43.10 and Major depressive disorder, recurrent episode, moderate F33.1 [place] [id number] [place] [address] 47814- 6187 Apr, Posttraumatic stress disorder F43.10 and Major depressive disorder, recurrent episode, moderate F33.1 [place] [id number] [place] [address] 90182- 3700 Apr, [place] [id number] [place] [address] 14124- 2695 Apr, Unspecified mood [affective] disorder F39 and Post traumatic stress disorder F43.10 [place] [id number] [place] [address] 95882- 3658 Apr, Post traumatic stress disorder F43.10 and Unspecified mood [ affective] disorder F39 [place] [id number] [place] [address] 01494- 2580 March, Unspecified mood [affective] disorder F39 [facility] [address] [place] [address] Dec, [place] [id number] [place] [address] 28704- 5354 Oct, 39 weeks gestation of Z3A.39 [place] [id number] [place] [address] 41524- 3461 Oct, 38 weeks gestation of Z3A.38 [place] [id number] [place] [address] 24532- 7582 Oct, Third trimester at less than 36 weeks Z33.1 [place] [id number] [place] [address] 27268- 7096 07 Oct, 2016 Normal in multigravida Z34.80 [place] [address] [place] [address] 78712- 2090 Sep, 35 weeks gestation of Z3A.35 [place] [id number] [place] [address] 44053- 7643 Sep, Rh negative status during in third trimester O09.893 [place] [id number] [place] [address] 96608- 4688 Sep, Third trimester at less than 36 weeks Z33.1 [place] [id number] [place] [address] 10852- 4410 02 Sep, 2016 Normal in multigravida Z34.80 [place] [id number] [place] [address] 53700- 8436 Aug, 29 weeks gestation of Z3A.29 [place] [id number] [place] [address] 83671- 5529 Aug, 29 weeks gestation of Z3A.29 [place] [id number] [place] [address] 34513- 1559 Aug, Normal in multigravida Z34.80 [place] [id number] [place] [address] 35427- 3129 Jun, IMMUNIZATIONS No Known Immunizations SOCIAL HISTORY Never Assessed REASON FOR VISIT OB 1wk f/u , urine OB dip --tcuppettRN PLAN OF CARE Activity Details Follow Up 2 Months Reason: Pending Test UA OB DIP (IN HOUSE) VITAL SIGNS Height 66 in 2018-08-30 Weight 266.4 lbs 2018-08-30 Temperature 98.7 degrees Fahrenheit 2018-08-30 Heart Rate 84 bpm 2018-08-30 Respiratory Rate 20 2018-08-30 BMI 42.998 kg/m2 2018-08-30 Blood pressure systolic 114 mmHg 2018-08-30 Blood pressure diastolic 72 mmHg 2018-08-30 MEDICATIONS Medication Instructions Dosage Frequency Start Date End Date Duration Status Active Sertraline HCl 50 mg Orally Once a day 1 tablet 24h Jul, 30 day (s) Active Reglan 5 mg Orally every 8 hours 1 tablet as needed 8h May, Active RESULTS No Results PROCEDURES Procedure Date Ordered Result Body Site URINE-NO MICRO Aug 30, 2018 INSTRUCTIONS MEDICATIONS ADMINISTERED No Known Medications MEDICAL (GENERAL) HISTORY Type Description Date Medical History anxiety Medical History depression Medical History lower lumbar scoliosis Medical History migraines Surgical History section x2 Surgical History tonsillectomy Surgical History extraction of tooth Hospitalization History Childbirth Only
--- OUTSIDE RECORDS SUMMARY | 2018-09-07 06:17 | XMS REPORT ---
Author Author SLY MANRIQUE Organization [facility] Address [address] [place] [address] Care Team Providers Care Strap Buckler Name Role Phone SLY MANRIQUE Unavailable PROBLEMS Type Condition ICD9-CM Code [id number] Code Onset Dates Condition Status SNOMED Code Problem Major depressive disorder, recurrent episode, moderate F33.1 Active 957785991 Problem Posttraumatic stress disorder F43.10 Active 76757632 Problem Rh negative status during , second trimester O09.892 Active 940646921 Problem Rh negative status during in third trimester O09.893 Active 262328162 Problem Post traumatic stress disorder F43.10 Active 46177122 Problem Unspecified mood [affective] disorder F39 Active 36315708 ALLERGIES No Information ENCOUNTERS Encounter Location Date Diagnosis [place] [address] [place] [address] 50194- 4204 Aug, [place] [id number] [place] [address] 27369- 1507 Jul, BMI 40.0-44.9, adult Z68.41 and Third trimester Z34.93 [place] [id number] [place] [address] 20297- 0375 Jul, Encounter for supervision of normal , unspecified, third trimester Z34.93 [facility] [id number] [place] [address] 54368- 8811 Jun, Third trimester Z34.93 and Encounter for immunization Z23 [place] [address] [place] [address] 71686- 3561 Jun, Second trimester Z34.92 [place] [address] [place] [address] 46447- 1586 Jun, Second trimester Z34.92 [facility] [address], [place] [address]- 5086 Jun, BMI 40.0-44.9, adult Z68.41 and Second trimester Z34.92 [place] [address] [place] [address]- 5818 Jun, Screening for deficiency anemia Z13.0 [place] [id number] [place] [address] 46069- 4735 May, Second trimester Z33.1 [place] [id number] [place] [address] 04827- 6814 Apr, Encounter for supervision of normal in second trimester Z34.92 [place] [id number] [place] [address] 26817- 9215 March, care in second trimester Z34.92 [place] [id number] [place] [address] 26430- 8393 Feb, Normal in multigravida Z34.80 [place] [id number] [place] [address] 81122- 7340 Jan, [place] [id number] [place] [address] 60319- 3012 Jan, Encounter for test, result unknown Z32.00 [place] [address] [place] [address] 94318- 8895 Apr, Posttraumatic stress disorder F43.10 and Major depressive disorder, recurrent episode, moderate F33.1 [place] [address] [place] [address]- 7349 13 Apr, 2017 Posttraumatic stress disorder F43.10 and Major depressive disorder, recurrent episode, moderate F33.1 [place] [address] [place] [address] 28991- 5790 07 Apr, 2017 [place] [id number] [place] [address] 04724- 3846 Apr, Unspecified mood [affective] disorder F39 and Post traumatic stress disorder F43.10 [place] [id number] [place] [address] 53414- 6280 Apr, Post traumatic stress disorder F43.10 and Unspecified mood [ affective] disorder F39 [place] [id number] [place] [address] 36604- 6463 March, Unspecified mood [affective] disorder F39 [facility] [address] [place] [address] Dec, [place] [id number] [place] [address] 03530- 6238 Oct, 39 weeks gestation of Z3A.39 [place] [id number] [place] [address] 13290- 0186 Oct, 38 weeks gestation of Z3A.38 [place] [id number] [place] [address] 46110- 6148 Oct, Third trimester at less than 36 weeks Z33.1 [place] [id number] [place] [address] 59000- 8168 Oct, Normal in multigravida Z34.80 [place] [id number] [place] [address] 97788- 5245 Sep, 35 weeks gestation of Z3A.35 [place] [id number] [place] [address] 05941- 7550 Sep, Rh negative status during in third trimester O09.893 [place] [id number] [place] [address] 74614- 9919 Sep, Third trimester at less than 36 weeks Z33.1 [place] [id number] [place] [address] 64424- 7638 Sep, Normal in multigravida Z34.80 [place] [id number] [address]- 8650 Aug, 29 weeks gestation of Z3A.29 [place] [id number] [address]- 9865 Aug, 29 weeks gestation of Z3A.29 [place] [id number] [address]- 0825 05 Aug, 2016 Normal in multigravida Z34.80 [place] [id number] [address]- 1823 Jun, IMMUNIZATIONS No Known Immunizations SOCIAL HISTORY Never Assessed REASON FOR VISIT OB 2wk f/u. Pt refused TDap-awoods PLAN OF CARE Activity Details Follow Up 2 Weeks Reason: VITAL SIGNS Height 66 in 2018-07-05 Weight 252.9 lbs 2018-07-05 Temperature 98.6 degrees Fahrenheit 2018-07-05 Heart Rate 110 bpm 2018-07-05 Respiratory Rate 20 2018-07-05 BMI 40.819 kg/m2 2018-07-05 Blood pressure systolic 138 mmHg 2018-07-05 Blood pressure diastolic 80 mmHg 2018-07-05 MEDICATIONS Medication Instructions Dosage Frequency Start Date End Date Duration Status Reglan 5 mg Orally every 8 hours 1 tablet as needed 8h 11 May, 2018 Active Omeprazole 10 mg Orally Once a day 2 capsules 24h Sep, 30 day(s ) Not-Taking Active Sertraline HCl 50 mg Orally Once a day 1 tablet 24h Feb, 30 day (s) Active Prozac 20 mg Orally Once a day 1 capsule in the morning 24h Apr, 30 day(s) Not-Taking Sertraline HCl 25 MG Orally Once a day 1 tablet 24h Sep, 30 day (s) Not-Taking RESULTS Name Result Date Reference Range UA OB DIP (IN HOUSE) 2018-07-05 Glucose neg Protein 1+ PROCEDURES Procedure Date Ordered Result Body Site URINE-NO MICRO Jul 05, 2018 INSTRUCTIONS MEDICATIONS ADMINISTERED No Known Medications MEDICAL (GENERAL) HISTORY Type Description Date Medical History anxiety Medical History depression Medical History lower lumbar scoliosis Medical History migraines Surgical History section x2 Surgical History tonsillectomy Surgical History extraction of tooth Hospitalization History Childbirth Only
--- OUTSIDE RECORDS SUMMARY | 2018-09-07 06:17 | XMS REPORT ---
Author Author SLY MANRIQUE [facility] Address [address] [place] [address] Care Team Providers Care Undercollar Baster Name Role Phone SLY MANRIQUE Unavailable PROBLEMS Type Condition ICD9-CM Code RUE19-FM Code Onset Dates Condition Status SNOMED Code Problem Major depressive disorder, recurrent episode, moderate F33.1 Active 525876991 Problem Posttraumatic stress disorder F43.10 Active 07149760 Problem Rh negative status during , second trimester O09.892 Active 779683942 Problem Rh negative status during in third trimester O09.893 Active 887139401 Problem Post traumatic stress disorder F43.10 Active 57724768 Problem Unspecified mood [affective] disorder F39 Active 68654599 ALLERGIES Substance Reaction Event Type Date Status Advair Diskus anaphylaxis Drug Allergy Jul, Active ENCOUNTERS Encounter Location Date Diagnosis [place] [address] [place] [id number] [place] [address] 76513- 1113 Aug, [place] [id number] [place] [address] 25686- 8298 Jul, BMI 40.0-44.9, adult Z68.41 and Third trimester Z34.93 [place] [id number] [place] [address] 78855- 5540 Jul, Encounter for supervision of normal , unspecified, third trimester Z34.93 [facility] [id number] [place] [address] 03574- 2770 Jun, Third trimester Z34.93 and Encounter for immunization Z23 [place] [id number] [place] [address] 05955- 1093 Jun, Second trimester Z34.92 [place] [id number] [place] [address] 34344- 2304 Jun, Second trimester Z34.92 [facility] [id number] [place] [address] 21163- 0579 Jun, BMI 40.0-44.9, adult Z68.41 and Second trimester Z34.92 [place] [address] [address] 7667 Jun, Screening for deficiency anemia Z13.0 [place] [id number] [place] [address] 39956- 2526 May, Second trimester Z33.1 [place] [id number] [place] [address] 31834- 2294 Apr, Encounter for supervision of normal in second trimester Z34.92 [place] [id number] [place] [address] 46424- 6760 March, care in second trimester Z34.92 [place] [id number] [place] [address] 68498- 0050 Feb, Normal in multigravida Z34.80 [place] [id number] [place] [address] 13299- 4602 Jan, [place] [address] [address] 4501 Jan, Encounter for test, result unknown Z32.00 [place] [address] [place] [address] 44351- 1460 Apr, Posttraumatic stress disorder F43.10 and Major depressive disorder, recurrent episode, moderate F33.1 [place] [id number] [place] [address] 77363- 0620 Apr, Posttraumatic stress disorder F43.10 and Major depressive disorder, recurrent episode, moderate F33.1 [place] [address] [place] [address] 86468- 4320 07 Apr, 2017 [place] [address] [address] 5504 Apr, Unspecified mood [affective] disorder F39 and Post traumatic stress disorder F43.10 [place] [id number] [place] [address] 926736- 8987 Apr, Post traumatic stress disorder F43.10 and Unspecified mood [ affective] disorder F39 [place] [address] [place] [address] 56050- 3941 March, Unspecified mood [affective] disorder F39 [facility] [address] [place] [address] Dec, [place] [id number] [place] [address] 99543- 7945 Oct, 39 weeks gestation of Z3A.39 [place] [id number] [place] [address] 92744- 5374 Oct, 38 weeks gestation of Z3A.38 [place] [address] [place] [address] 73851- 9445 Oct, Third trimester at less than 36 weeks Z33.1 [place] [id number] [place] [address] 53012- 5955 07 Oct, 2016 Normal in multigravida Z34.80 [place] [address] [place] [address] 53086- 4374 Sep, 35 weeks gestation of Z3A.35 [place] [address] [place] [address] 08911- 2790 17 Sep, 2016 Rh negative status during in third trimester O09.893 [place] [id number] [place] [address] 15322- 4516 16 Sep, 2016 Third trimester at less than 36 weeks Z33.1 [place] [address] [address] 1925 Sep, Normal in multigravida Z34.80 [place] [address] [facility] [id number] [address] 6971 Aug, 29 weeks gestation of Z3A.29 [place] [address] [place] [id number] [address]- 5857 Aug, 29 weeks gestation of Z3A.29 [place] [address] [address]- 1145 Aug, Normal in multigravida Z34.80 [place] [address] [facility] [id number] [address] 1328 Jun, IMMUNIZATIONS No Known Immunizations SOCIAL HISTORY Never Assessed REASON FOR VISIT OB 2wk f/u. OB Urine Dip, Pt wants TDap following surgery--tcuppettRN PLAN OF CARE Activity Details Follow Up 2 Weeks, 2 Weeks Reason: VITAL SIGNS Height 66 in 2018-07-19 Weight 258.1 lbs 2018-07-19 Temperature 98.7 degrees Fahrenheit 2018-07-19 Heart Rate 84 bpm 2018-07-19 Respiratory Rate 20 2018-07-19 BMI 41.658 kg/m2 2018-07-19 Blood pressure systolic 122 mmHg 2018-07-19 Blood pressure diastolic 76 mmHg 2018-07-19 MEDICATIONS Medication Instructions Dosage Frequency Start Date End Date Duration Status Prozac 20 mg Orally Once a day 1 capsule in the morning 24h 06 Apr, 2017 30 day(s) Not-Taking Sertraline HCl 50 mg Orally Once a day 1 tablet 24h Jul, 30 day (s) Active Active Sertraline HCl 25 MG Orally Once a day 1 tablet 24h Sep, 30 day (s) Not-Taking Omeprazole 10 mg Orally Once a day 2 capsules 24h Sep, 30 day(s ) Not-Taking Reglan 5 mg Orally every 8 hours 1 tablet as needed 8h May, Active Sertraline HCl 50 mg Orally Once a day 1 tablet 24h 18 Feb, 2018 30 day (s) Active RESULTS No Results PROCEDURES No Known procedures INSTRUCTIONS MEDICATIONS ADMINISTERED No Known Medications MEDICAL (GENERAL) HISTORY Type Description Date Medical History anxiety Medical History depression Medical History lower lumbar scoliosis Medical History migraines Surgical History section x2 Surgical History tonsillectomy Surgical History extraction of tooth Hospitalization History Childbirth Only
--- OUTSIDE RECORDS SUMMARY | 2018-09-07 06:18 | XMS REPORT ---
Author Author SLY MANRIQUE Organization [facility] Address [address] [place] [address] Care Team Providers Care Spinning Room Worker Name Role Phone SLY MANRIQUE Unavailable PROBLEMS Type Condition ICD9-CM Code [id number] Code Onset Dates Condition Status SNOMED Code Problem Major depressive disorder, recurrent episode, moderate F33.1 Active 682977544 Problem Posttraumatic stress disorder F43.10 Active 62400198 Problem Rh negative status during , second trimester O09.892 Active 330354762 Problem Rh negative status during in third trimester O09.893 Active 073377911 Problem Post traumatic stress disorder F43.10 Active 89538738 Problem Unspecified mood [affective] disorder F39 Active 75785208 ALLERGIES Substance Reaction Event Type Date Status Advair Diskus anaphylaxis Drug Allergy Jun, Active ENCOUNTERS Encounter Location Date Diagnosis [place] [address] [place] [address] [id number] [place] [address] 51368- 2451 Jul, [place] [id number] [place] [address] 84150- 6950 Jul, Encounter for supervision of normal , unspecified, third trimester Z34.93 [place] [address] [place] [address] 50599- 3778 Jun, Third trimester Z34.93 and Encounter for immunization Z23 [place] [address] [place] [address] [id number] [place] [address] 74626- 1164 Jun, Second trimester Z34.92 [place] [id number] [place] [address] 92029- 2371 Jun, Second trimester Z34.92 [place] [id number] [place] [address] 75245- 3485 Jun, BMI 40.0-44.9, adult Z68.41 and Second trimester Z34.92 [place] [id number] [place] [address] 78797- 1465 Jun, Screening for deficiency anemia Z13.0 [place] [id number] [place] [address] 89749- 4320 May, Second trimester Z33.1 [place] [id number] [place] [address] 88826- 5640 Apr, Encounter for supervision of normal in second trimester Z34.92 [place] [id number] [place] [address] 64822- 7129 March, care in second trimester Z34.92 [place] [id number] [place] [address] 48875- 2380 Feb, Normal in multigravida Z34.80 [place] [id number] [place] [address] 55722- 2044 Jan, [place] [id number] [place] [address] 47708- 4861 Jan, Encounter for test, result unknown Z32.00 [place] [id number] [place] [address] 89250- 5709 Apr, Posttraumatic stress disorder F43.10 and Major depressive disorder, recurrent episode, moderate F33.1 [place] [id number] [place] [address] 35063- 2389 Apr, Posttraumatic stress disorder F43.10 and Major depressive disorder, recurrent episode, moderate F33.1 [place] [id number] [place] [address] 96152- 6515 07 Apr, 2017 [place] [id number] [place] [address] 76824- 3256 06 Apr, 2017 Unspecified mood [affective] disorder F39 and Post traumatic stress disorder F43.10 [place] [id number] [place] [address] 77510- 0438 Apr, Post traumatic stress disorder F43.10 and Unspecified mood [ affective] disorder F39 [place] [id number] [place] [address] 06087- 6474 March, Unspecified mood [affective] disorder F39 [facility] [address] [place] [address] Dec, [place] [id number] [place] [address] 30275- 2697 Oct, 39 weeks gestation of Z3A.39 [place] [id number] [place] [address] 80285- 9360 Oct, 38 weeks gestation of Z3A.38 [place] [id number] [place] [address] 88193- 6675 14 Oct, 2016 Third trimester at less than 36 weeks Z33.1 [place] [id number] [place] [address] 89946- 3920 07 Oct, 2016 Normal in multigravida Z34.80 [place] [id number] [place] [address] 33875- 0120 Sep, 35 weeks gestation of Z3A.35 [place] [address] [place] [address] 48018- 9924 17 Sep, 2016 Rh negative status during in third trimester O09.893 [place] [id number] [place] [address] 83461- 6158 16 Sep, 2016 Third trimester at less than 36 weeks Z33.1 [place] [id number] [place] [address] 69286- 0114 02 Sep, 2016 Normal in multigravida Z34.80 [place] [id number] [place] [address] 91462- 8105 Aug, 29 weeks gestation of Z3A.29 [place] [address] [place] [address]- 8488 Aug, 29 weeks gestation of Z3A.29 [facility] [address] [facility] [id number] [address] 0021 Aug, Normal in multigravida Z34.80 [facility] [address] [facility] [id number] [address]- 5017 Jun, IMMUNIZATIONS No Known Immunizations SOCIAL HISTORY Never Assessed REASON FOR VISIT OB 3wk f/u, 1 hour GTT-mpoIsaac, Pt unable to do 1 hr GTT today, will come back tomorrow, Pt was not able to leave a urine sample PLAN OF CARE Activity Details Follow Up 2 Weeks Reason: Pending Test GLUCOSE TOMAS 1 HOUR Pending Test CBC VITAL SIGNS Height 66 in 2018-06-07 Weight 251.4 lbs 2018-06-07 Temperature 98.8 degrees Fahrenheit 2018-06-07 Heart Rate 110 bpm 2018-06-07 Respiratory Rate 20 2018-06-07 BMI 40.577 kg/m2 2018-06-07 Blood pressure systolic 106 mmHg 2018-06-07 Blood pressure diastolic 72 mmHg 2018-06-07 MEDICATIONS Medication Instructions Dosage Frequency Start Date [...] PROCEDURES Procedure Date Ordered Result Body Site LAB NOT BILLED BY [facility] Jun 07, 2018 INSTRUCTIONS MEDICATIONS ADMINISTERED No Known Medications MEDICAL (GENERAL) HISTORY Type Description Date Medical History anxiety Medical History depression Medical History lower lumbar scoliosis Medical History migraines Surgical History section x2 Surgical History tonsillectomy Surgical History extraction of tooth Hospitalization History Childbirth Only
--- OUTSIDE RECORDS SUMMARY | 2018-09-07 06:18 | XMS REPORT ---
Author Author SLY MANRIQUE Organization [facility] [place] Address [address] [place] [address] Care Team Providers Care Operations Administrator Name Role Phone SLY MANRIQUE Unavailable PROBLEMS Type Condition ICD9-CM Code ZFH26-UP Code Onset Dates Condition Status SNOMED Code Problem Major depressive disorder, recurrent episode, moderate F33.1 Active 360862936 Problem Posttraumatic stress disorder F43.10 Active 68657909 Problem Rh negative status during , second trimester O09.892 Active 033457846 Problem Rh negative status during in third trimester O09.893 Active 460692367 Problem Post traumatic stress disorder F43.10 Active 64358571 Problem Unspecified mood [affective] disorder F39 Active 00098390 ALLERGIES No Information ENCOUNTERS Encounter Location Date Diagnosis [place] [id number] [place] [address] 84020- 9167 Jul, [place] [address] [id number] [place] [address] 00703- 0518 12 Jul, 2018 Encounter for supervision of normal , unspecified, third trimester Z34.93 [place] [address] [place] [address] 44753- 6487 Jun, Third trimester Z34.93 and Encounter for immunization Z23 [place] [address] [place] [address] 63571- 6747 Jun, Second trimester Z34.92 [place] [id number] [place] [address] 90419- 1793 Jun, Second trimester Z34.92 [place] [id number] [place] [address] 35372- 0987 Jun, BMI 40.0-44.9, adult Z68.41 and Second trimester Z34.92 [place] [address] [address]- 8534 Jun, Screening for deficiency anemia Z13.0 [place] [id number] [place] [address] 25754- 6205 May, Second trimester Z33.1 [place] [id number] [place] [address] 66674- 5982 Apr, Encounter for supervision of normal in second trimester Z34.92 [place] [id number] [place] [address] 56307- 4912 March, care in second trimester Z34.92 [place] [id number] [place] [address] 78976- 1990 Feb, Normal in multigravida Z34.80 [place] [id number] [place] [address] 41563- 5041 Jan, [place] [id number] [place] [address] 57608- 9990 Jan, Encounter for test, result unknown Z32.00 [place] [id number] [place] [address] 43617- 7360 Apr, Posttraumatic stress disorder F43.10 and Major depressive disorder, recurrent episode, moderate F33.1 [place] [address] [place] [address] 68448- 8412 Apr, Posttraumatic stress disorder F43.10 and Major depressive disorder, recurrent episode, moderate F33.1 [place] [id number] [place] [address] 79058- 4849 Apr, [place] [id number] [place] [address] 74622- 4014 Apr, Unspecified mood [affective] disorder F39 and Post traumatic stress disorder F43.10 [place] [id number] [place] [address] 34548- 9729 Apr, Post traumatic stress disorder F43.10 and Unspecified mood [ affective] disorder F39 [place] [id number] [place] [address] 95592- 9363 March, Unspecified mood [affective] disorder F39 [facility] [address] [place] [address] Dec, [place] [id number] [place] [address] 26433- 6874 Oct, 39 weeks gestation of Z3A.39 [place] [id number] [place] [address] 94916- 5574 Oct, 38 weeks gestation of Z3A.38 [place] [id number] [place] [address] 98176- 3865 Oct, Third trimester at less than 36 weeks Z33.1 [place] [address] 38323- 4476 07 Oct, 2016 Normal in multigravida Z34.80 [place] [address] [id number] [place] [address] 72762- 4707 Sep, 35 weeks gestation of Z3A.35 [place] [id number] [place] [address] 50734- 5581 Sep, Rh negative status during in third trimester O09.893 [place] [address] [id number] [place] [address] 66288- 9441 Sep, Third trimester at less than 36 weeks Z33.1 [place] [address] [id number] [place] [address] 07516- 6947 Sep, Normal in multigravida Z34.80 [place] [address] [id number] [place] [address] 60026- 7945 Aug, 29 weeks gestation of Z3A.29 [place] [address] [id number] [place] [address] 51697- 5108 Aug, 29 weeks gestation of Z3A.29 [facility] [place] [address] [facility] [id number] [place] [address]- 6111 Aug, Normal in multigravida Z34.80 [facility] [place] [address] [facility] [id number] [place] [address]- 7961 Jun, IMMUNIZATIONS No Known Immunizations SOCIAL HISTORY Never Assessed REASON FOR VISIT OB 2wk f/u -- lary pope PLAN OF CARE Activity Details Follow Up 2 Weeks Reason: VITAL SIGNS Height 66 in 2018-06-21 Weight 251.9 lbs 2018-06-21 Temperature 99.0 degrees Fahrenheit 2018-06-21 BMI 40.658 kg/m2 2018-06-21 Blood pressure systolic 122 mmHg 2018-06-21 Blood pressure diastolic 70 mmHg 2018-06-21 MEDICATIONS Medication Instructions Dosage Frequency Start Date [...] tablet as needed 8h May, Active RESULTS Name Result Date Reference Range UA OB DIP (IN HOUSE) 2018-06-21 Glucose neg Protein 1+ PROCEDURES Procedure Date Ordered Result Body Site URINE-NO MICRO Jun 21, 2018 INSTRUCTIONS MEDICATIONS ADMINISTERED No Known Medications MEDICAL (GENERAL) HISTORY Type Description Date Medical History anxiety Medical History depression Medical History lower lumbar scoliosis Medical History migraines Surgical History section x2 Surgical History tonsillectomy Surgical History extraction of tooth Hospitalization History Childbirth Only
--- OUTSIDE RECORDS SUMMARY | 2018-09-07 06:18 | XMS REPORT ---
Author Author TRACY LAMBERT [facility] Address [address] [place] [address] Care Team Providers Care Professor Of Marketing Name Role Phone FAUSTO TRACY Unavailable PROBLEMS Type Condition ICD9-CM Code NDX22-AV Code Onset Dates Condition Status SNOMED Code Problem Major depressive disorder, recurrent episode, moderate F33.1 Active 751584537 Problem Posttraumatic stress disorder F43.10 Active 13472028 Problem Rh negative status during , second trimester O09.892 Active 267344852 Problem Rh negative status during in third trimester O09.893 Active 107159088 Problem Post traumatic stress disorder F43.10 Active 38438230 Problem Unspecified mood [affective] disorder F39 Active 90008093 ALLERGIES No Information ENCOUNTERS Encounter Location Date Diagnosis [place] [id number] [place] [address] 88065- 5360 Jul, [place] [id number] [place] [address] 74348- 3199 12 Jul, 2018 Encounter for supervision of normal , unspecified, third trimester Z34.93 [place] [id number] [place] [address] 08538- 6207 Jun, Third trimester Z34.93 and Encounter for immunization Z23 [place] [id number] [place] [address] 47015- 3090 Jun, Second trimester Z34.92 [place] [address] 04457- 8207 03 Jun, 2018 Second trimester Z34.92 [place] [id number] [place] [address] 68430- 5926 Jun, BMI 40.0-44.9, adult Z68.41 and Second trimester Z34.92 [place] [address] [place] [address] 35764- 6109 Jun, Screening for deficiency anemia Z13.0 [place] [id number] [place] [address] 85108- 6234 May, Second trimester Z33.1 [place] [id number] [place] [address] 77626- 8854 Apr, Encounter for supervision of normal in second trimester Z34.92 [place] [id number] [place] [address] 89525- 4352 March, care in second trimester Z34.92 [place] [id number] [place] [address] 88786- 0398 Feb, Normal in multigravida Z34.80 [place] [id number] [place] [address] 31154- 2987 Jan, [place] [id number] [place] [address] 63619- 6251 Jan, Encounter for test, result unknown Z32.00 [place] [id number] [place] [address] 15847- 2174 Apr, Posttraumatic stress disorder F43.10 and Major depressive disorder, recurrent episode, moderate F33.1 [place] [id number] [place] [address] 92075- 1788 Apr, Posttraumatic stress disorder F43.10 and Major depressive disorder, recurrent episode, moderate F33.1 [place] [id number] [place] [address] 63782- 6171 Apr, [place] [id number] [place] [address] 75759- 1235 Apr, Unspecified mood [affective] disorder F39 and Post traumatic stress disorder F43.10 [place] [id number] [place] [address] 52203- 7772 Apr, Post traumatic stress disorder F43.10 and Unspecified mood [ affective] disorder F39 [place] [id number] [place] [address] 52332- 8129 March, Unspecified mood [affective] disorder F39 [facility] [address] [place] [address] Dec, [place] [id number] [place] [address] 02797- 6445 Oct, 39 weeks gestation of Z3A.39 [place] [id number] [place] [address] 88745- 1126 Oct, 38 weeks gestation of Z3A.38 [place] [id number] [place] [address] 30554- 3161 Oct, Third trimester at less than 36 weeks Z33.1 [place] [address] 73119- 1113 07 Oct, 2016 Normal in multigravida Z34.80 [place] [id number] [place] [address] 45109- 0268 Sep, 35 weeks gestation of Z3A.35 [place] [id number] [place] [address] 52968- 7811 17 Sep, 2016 Rh negative status during in third trimester O09.893 [place] [id number] [place] [address] 46042- 2556 16 Sep, 2016 Third trimester at less than 36 weeks Z33.1 [place] [id number] [place] [address] 80165- 2050 Sep, Normal in multigravida Z34.80 [place] [id number] [place] [address] 68575- 5541 Aug, 29 weeks gestation of Z3A.29 [place] [id number] [place] [address] 94577- 4030 Aug, 29 weeks gestation of Z3A.29 [facility] [address] [facility] [id number] [place] [address] Aug, Normal in multigravida Z34.80 [facility] [address] [facility] [id number] [place] [address]- 7999 Jun, IMMUNIZATIONS No Known Immunizations SOCIAL HISTORY Never Assessed REASON FOR VISIT WI Hemoglobin PLAN OF CARE VITAL SIGNS MEDICATIONS Unknown Medications RESULTS Name Result Date Reference Range HEMOGLOBIN (IN HOUSE) 2018-06-07 HEMOGLOBIN 12.1 11.5 - 16 gm/dL Lot # [id number] Exp date 08/15/2019 PROCEDURES Procedure Date Ordered Result Body Site HEMOGLOBIN Jun 07, 2018 INSTRUCTIONS MEDICATIONS ADMINISTERED No Known Medications MEDICAL (GENERAL) HISTORY Type Description Date Medical History anxiety Medical History depression Medical History lower lumbar scoliosis Medical History migraines Surgical History section x2 Surgical History tonsillectomy Surgical History extraction of tooth Hospitalization History Childbirth Only
--- OUTSIDE RECORDS SUMMARY | 2018-09-07 06:18 | XMS REPORT ---
Author Author SLY MANRIQUE Organization [facility] Address [address] [place] [address] Care Team Providers Care Television Mechanic Name Role Phone SLY MANRIQUE Unavailable PROBLEMS Type Condition ICD9-CM Code WHN23-JT Code Onset Dates Condition Status SNOMED Code Problem Major depressive disorder, recurrent episode, moderate F33.1 Active 748076418 Problem Posttraumatic stress disorder F43.10 Active 64144825 Problem Rh negative status during , second trimester O09.892 Active 650589054 Problem Rh negative status during in third trimester O09.893 Active 506989275 Problem Post traumatic stress disorder F43.10 Active 59116337 Problem Unspecified mood [affective] disorder F39 Active 03598546 ALLERGIES No Information ENCOUNTERS Encounter Location Date Diagnosis [place] [address] [place] [address] 85640- 0512 Jul, [place] [address] [place] [id number] [place] [address] 74072- 6614 12 Jul, 2018 Encounter for supervision of normal , unspecified, third trimester Z34.93 [place] [address] [place] [address] 84247- 6982 Jun, Third trimester Z34.93 and Encounter for immunization Z23 [place] [address] [place] [address] 12060- 9257 Jun, Second trimester Z34.92 [place] [address] [place] [address] [id number] [place] [address] 19877- 2202 Jun, Second trimester Z34.92 [place] [address] [id number] [place] [address] 01816- 4355 Jun, BMI 40.0-44.9, adult Z68.41 and Second trimester Z34.92 [place] [address] [address]- 1565 Jun, Screening for deficiency anemia Z13.0 [place] [address] [place] [id number] [place] [address] 74054- 3266 May, Second trimester Z33.1 [place] [address] [place] [address] [id number] [place] [address] 15182- 1556 Apr, Encounter for supervision of normal in second trimester Z34.92 [place] [address] [place] [address] [id number] [place] [address] 84737- 9658 March, care in second trimester Z34.92 [place] [address] [address] [place] [address] 70899- 5659 Feb, Normal in multigravida Z34.80 [place] [address] [address] [address] [place] [address] 56621- 3384 Jan, [place] [address] [place] [address] [id number] [place] [address] 05772- 1189 Jan, Encounter for test, result unknown Z32.00 [place] [address] [address] [place] [address] 45662- 9951 Apr, Posttraumatic stress disorder F43.10 and Major depressive disorder, recurrent episode, moderate F33.1 [place] [address] [place] [address] 56848- 0588 Apr, Posttraumatic stress disorder F43.10 and Major depressive disorder, recurrent episode, moderate F33.1 [place] [address] [place] [id number] [place] [address] 51524- 0703 Apr, [place] [id number] [place] [address] 98652- 6229 Apr, Unspecified mood [affective] disorder F39 and Post traumatic stress disorder F43.10 [place] [id number] [place] [address] 54095- 3120 Apr, Post traumatic stress disorder F43.10 and Unspecified mood [ affective] disorder F39 [place] [address] [address] [id number] [place] [address] 53832- 9805 March, Unspecified mood [affective] disorder F39 [facility] [address] [place] [address] Dec, [place] [address] [place] [id number] [place] [address] 22305- 7496 Oct, 39 weeks gestation of Z3A.39 [place] [address] [place] [address] [address] [place] [address] 31339- 0660 Oct, 38 weeks gestation of Z3A.38 [place] [address] [place] [address] [address] [place] [address] 51794- 6967 Oct, Third trimester at less than 36 weeks Z33.1 [place] [address] 01892- 9765 07 Oct, 2016 Normal in multigravida Z34.80 [place] [address] [place] [address] [place] [address] 42254- 5285 Sep, 35 weeks gestation of Z3A.35 [place] [address] [place] [address] [place] [address] 65624- 9849 Sep, Rh negative status during in third trimester O09.893 [place] [address] [place] [address] [place] [address] 53796- 3295 Sep, Third trimester at less than 36 weeks Z33.1 [place] [address] [place] [id number] [place] [address] 91312- 7629 Sep, Normal in multigravida Z34.80 [place] [address] [place] [address] [place] [address] 25848- 5188 Aug, 29 weeks gestation of Z3A.29 [place] [address] [place] [id number] [place] [address] 26281- 9132 Aug, 29 weeks gestation of Z3A.29 [facility] [address] [facility] [id number] [place] [address] 9793 Aug, Normal in multigravida Z34.80 [facility] [address] [facility] [id number] [place] [address] 5603 Jun, IMMUNIZATIONS No Known Immunizations SOCIAL HISTORY Never Assessed REASON FOR VISIT Lab (walk-in) PLAN OF CARE VITAL SIGNS MEDICATIONS Unknown Medications RESULTS No Results PROCEDURES Procedure Date Ordered Result Body Site LAB NOT BILLED BY [facility] Jun 09, 2018 INSTRUCTIONS MEDICATIONS ADMINISTERED No Known Medications MEDICAL (GENERAL) HISTORY Type Description Date Medical History anxiety Medical History depression Medical History lower lumbar scoliosis Medical History migraines Surgical History section x2 Surgical History tonsillectomy Surgical History extraction of tooth Hospitalization History Childbirth Only
--- OUTSIDE RECORDS SUMMARY | 2018-09-07 06:18 | XMS REPORT ---
Author Author SLY MANRIQUE [facility] Address [address] [place] [address] Care Team Providers Care Supervisor Stripping Name Role Phone SLY MANRIQUE Unavailable PROBLEMS Type Condition ICD9-CM Code XCM96-VM Code Onset Dates Condition Status SNOMED Code Problem Major depressive disorder, recurrent episode, moderate F33.1 Active 944422246 Problem Posttraumatic stress disorder F43.10 Active 87092485 Problem Rh negative status during , second trimester O09.892 Active 314601285 Problem Rh negative status during in third trimester O09.893 Active 980273232 Problem Post traumatic stress disorder F43.10 Active 96574490 Problem Unspecified mood [affective] disorder F39 Active 82894127 ALLERGIES No Information ENCOUNTERS Encounter Location Date Diagnosis [place] [id number] [place] [address] 32258- 8150 Jun, [place] [address] [id number] [place] [address] 24208- 1519 Jun, Second trimester Z34.92 [place] [address] [place] [address] 39487- 7410 Jun, Second trimester Z34.92 [place] [id number] [place] [address] 74743- 1969 Jun, BMI 40.0-44.9, adult Z68.41 and Second trimester Z34.92 [place] [id number] [place] [address] 82923- 6907 Jun, Screening for deficiency anemia Z13.0 [place] [address] [place] [address] 18057- 6772 May, Second trimester Z33.1 [place] [address] [id number] [address]- 0753 Apr, Encounter for supervision of normal in second trimester Z34.92 [place] [id number] [place] [address] 44792- 9629 March, care in second trimester Z34.92 [place] [address] [place] [address] 21719- 7076 Feb, Normal in multigravida Z34.80 [place] [id number] [place] [address] 57597- 3535 Jan, [place] [id number] [place] [address] 90610- 6137 Jan, Encounter for test, result unknown Z32.00 [place] [id number] [place] [address] 36248- 4915 Apr, Posttraumatic stress disorder F43.10 and Major depressive disorder, recurrent episode, moderate F33.1 [place] [id number] [place] [address] 63603- 8361 Apr, Posttraumatic stress disorder F43.10 and Major depressive disorder, recurrent episode, moderate F33.1 [place] [address] [place] [address] 45905- 1702 Apr, [place] [address] [place] [address] 34694- 1160 Apr, Unspecified mood [affective] disorder F39 and Post traumatic stress disorder F43.10 [place] [address] [id number] [place] [address] 37132- 2466 Apr, Post traumatic stress disorder F43.10 and Unspecified mood [ affective] disorder F39 [place] [address] [place] [address] 15966- 6577 March, Unspecified mood [affective] disorder F39 [place] [address] [place] [address] Dec, [place] [address] [address]- 5533 Oct, 39 weeks gestation of Z3A.39 [facility] [address] [id number] [address]- 5385 Oct, 38 weeks gestation of Z3A.38 [facility] [address], [place] [address]- 0618 14 Oct, 2016 Third trimester at less than 36 weeks Z33.1 [facility] [address], [place] [address]- 8924 07 Oct, 2016 Normal in multigravida Z34.80 [place] [id number] [place] [address] 87944- 8383 30 Sep, 2016 35 weeks gestation of Z3A.35 [place] [address] [id number] [place] [address] 35496- 0404 17 Sep, 2016 Rh negative status during in third trimester O09.893 [place] [address] [place] [address] 36773- 9494 16 Sep, 2016 Third trimester at less than 36 weeks Z33.1 [place] [address] [address]- 1706 02 Sep, 2016 Normal in multigravida Z34.80 [place] [address], [place] [address]- 3522 Aug, 29 weeks gestation of Z3A.29 [place] [address], [place] [address]- 2326 Aug, 29 weeks gestation of Z3A.29 [place] [address], [place] [address]- 5386 Aug, Normal in multigravida Z34.80 [facility] [address], [place] [address]- 0638 Jun, IMMUNIZATIONS No Known Immunizations SOCIAL HISTORY Never Assessed REASON FOR VISIT OB 4wk f/u-- lary pope PLAN OF CARE Activity Details Follow Up 4 Weeks Reason: VITAL SIGNS Height 66 in 2018-03-22 Weight 239.0 lbs 2018-03-22 Temperature 99.0 degrees Fahrenheit 2018-03-22 BMI 38.576 kg/m2 2018-03-22 Blood pressure systolic 120 mmHg 2018-03-22 Blood pressure diastolic 78 mmHg 2018-03-22 MEDICATIONS Medication Instructions Dosage Frequency Start Date End Date Duration Status Sertraline HCl 50 mg Orally Once a day 1 tablet 24h Feb, 30 day (s) Active Prozac 20 mg Orally Once a day 1 capsule in the morning 24h Apr, 30 day(s) Not-Taking Omeprazole 10 mg Orally Once a day 2 capsules 24h Sep, 30 day(s ) Not-Taking Sertraline HCl 25 MG Orally Once a day 1 tablet 24h Sep, 30 day (s) Not-Taking Active RESULTS Name Result Date Reference Range UA OB DIP (IN HOUSE) 2018-03-22 Glucose neg Protein neg PROCEDURES Procedure Date Ordered Result Body Site URINE-NO MICRO March 22, 2018 INSTRUCTIONS MEDICATIONS ADMINISTERED No Known Medications MEDICAL (GENERAL) HISTORY Type Description Date Medical History anxiety Medical History depression Medical History lower lumbar scoliosis Medical History migraines Surgical History section x2 Surgical History tonsillectomy Surgical History extraction of tooth Hospitalization History Childbirth Only
--- OUTSIDE RECORDS SUMMARY | 2018-09-07 06:18 | XMS REPORT ---
Author Author SLY MANRIQUE [facility] Address [address] [place] [address] Care Team Providers Care Stitch Bonding Machine Tender Helper Name Role Phone SLY MANRIQUE Unavailable PROBLEMS Type Condition ICD9-CM Code NIC37-DG Code Onset Dates Condition Status SNOMED Code Problem Major depressive disorder, recurrent episode, moderate F33.1 Active 323472208 Problem Posttraumatic stress disorder F43.10 Active 70136298 Problem Rh negative status during , second trimester O09.892 Active 726827507 Problem Rh negative status during in third trimester O09.893 Active 573781440 Problem Post traumatic stress disorder F43.10 Active 38616605 Problem Unspecified mood [affective] disorder F39 Active 35581524 ALLERGIES Substance Reaction Event Type Date Status Advair Diskus anaphylaxis Drug Allergy May, Active ENCOUNTERS Encounter Location Date Diagnosis [place] [address] [place] [address] [id number] [place] [address] 83888- 1496 Jul, [place] [id number] [place] [address] 23681- 1637 Jun, Third trimester Z34.93 and Encounter for immunization Z23 [place] [address] [address] [id number] [place] [address] 33666- 9166 Jun, Second trimester Z34.92 [place] [address] [place] [id number] [place] [address] 72266- 8340 Jun, Second trimester Z34.92 [place] [address] [place] [id number] [place] [address] 73369- 2095 Jun, BMI 40.0-44.9, adult Z68.41 and Second trimester Z34.92 [place] [address] [place] [address] 87675- 3143 Jun, Screening for deficiency anemia Z13.0 [facility] [address] [address]- 6858 May, Second trimester Z33.1 [facility] [address] [address]- 8167 Apr, Encounter for supervision of normal in second trimester Z34.92 [facility] [address] [place] [address] [id number] [place] [address] 95585- 6150 March, care in second trimester Z34.92 [place] [address], [place] [address]- 6870 Feb, Normal in multigravida Z34.80 [place] [id number] [place] [address] 53293- 1764 Jan, [place] [address] [address] [id number] [place] [address] 41368- 1627 Jan, Encounter for test, result unknown Z32.00 [place] [address] [address]- 2801 Apr, Posttraumatic stress disorder F43.10 and Major depressive disorder, recurrent episode, moderate F33.1 [place] [address], [place] [address]- 2897 Apr, Posttraumatic stress disorder F43.10 and Major depressive disorder, recurrent episode, moderate F33.1 [place] [address], [place] [address]- 4454 Apr, [place] [address] [address]- 7425 Apr, Unspecified mood [affective] disorder F39 and Post traumatic stress disorder F43.10 [place] [address], [place] [address]- 1000 Apr, Post traumatic stress disorder F43.10 and Unspecified mood [ affective] disorder F39 [place] [id number] [place] [address] 45756- 4599 March, Unspecified mood [affective] disorder F39 [place] [address] [place] [address] Dec, [place] [address] [id number] [place] [address] 29858- 7630 Oct, 39 weeks gestation of Z3A.39 [place] [address] [address] [id number] [place] [address] 29546- 3839 Oct, 38 weeks gestation of Z3A.38 [place] [id number] [place] [address] 30314- 2801 Oct, Third trimester at less than 36 weeks Z33.1 [place] [id number] [place] [address] 36845- 5962 Oct, Normal in multigravida Z34.80 [place] [address] [place] [address] [id number] [place] [address] 32374- 3175 Sep, 35 weeks gestation of Z3A.35 [place] [address] [address] [id number] [place] [address] 76191- 1284 Sep, Rh negative status during in third trimester O09.893 [place] [address] [id number] [place] [address] 38593- 8450 Sep, Third trimester at less than 36 weeks Z33.1 [place] [address] [id number] [place] [address] 95764- 2489 Sep, Normal in multigravida Z34.80 [place] [address] [id number] [place] [address] 28980- 6593 Aug, 29 weeks gestation of Z3A.29 [place] [id number] [place] [address] 80500- 7017 Aug, 29 weeks gestation of Z3A.29 [place] [id number] [place] [address] 54430- 8280 Aug, Normal in multigravida Z34.80 [facility] [address] [facility] [id number] [place] [address]- 8668 Jun, IMMUNIZATIONS No Known Immunizations SOCIAL HISTORY Never Assessed REASON FOR VISIT OB 4wk f/u, chronic headaches-AHarrymanRN PLAN OF CARE Activity Details Follow Up 3 Weeks Reason: VITAL SIGNS Height 66 in 2018-05-17 Weight 246.8 lbs 2018-05-17 Temperature 97.6 degrees Fahrenheit 2018-05-17 Heart Rate 78 bpm 2018-05-17 Respiratory Rate 20 2018-05-17 BMI 39.835 kg/m2 2018-05-17 Blood pressure systolic 118 mmHg 2018-05-17 Blood pressure diastolic 76 mmHg 2018-05-17 MEDICATIONS Medication Instructions Dosage Frequency Start Date End Date Duration Status Sertraline HCl 25 MG Orally Once a day 1 tablet 24h Sep, 30 day (s) Not-Taking Sertraline HCl 50 mg Orally Once a day 1 tablet 24h Feb, 30 day (s) Active Prozac 20 mg Orally Once a day 1 capsule in the morning 24h Apr, 30 day(s) Not-Taking Active Reglan 5 mg Orally every 8 hours 1 tablet as needed 8h May, Active Omeprazole 10 mg Orally Once a day 2 capsules 24h Sep, 30 day(s ) Not-Taking RESULTS Name Result Date Reference Range UA OB DIP (IN HOUSE) 2018-05-17 Glucose neg Protein neg PROCEDURES Procedure Date Ordered Result Body Site URINE-NO MICRO May 17, 2018 INSTRUCTIONS MEDICATIONS ADMINISTERED No Known Medications MEDICAL (GENERAL) HISTORY Type Description Date Medical History anxiety Medical History depression Medical History lower lumbar scoliosis Medical History migraines Surgical History section x2 Surgical History tonsillectomy Surgical History extraction of tooth Hospitalization History Childbirth Only
--- OUTSIDE RECORDS SUMMARY | 2018-09-07 06:19 | XMS REPORT ---
Author Author SLY MANRIQUE Organization [facility] Address [address] [place] [address] Care Team Providers Care Leadership Development Consultant Name Role Phone SLY MANRIQUE Unavailable PROBLEMS Type Condition ICD9-CM Code [id number] Code Onset Dates Condition Status SNOMED Code Problem Posttraumatic stress disorder F43.10 Active 32821353 Problem Major depressive disorder, recurrent episode, moderate F33.1 Active 577590845 Problem Rh negative status during , second trimester O09.892 Active 841001151 Problem Rh negative status during in third trimester O09.893 Active 430984915 Problem Post traumatic stress disorder F43.10 Active 40236186 Problem Unspecified mood [affective] disorder F39 Active 86616896 ALLERGIES Unknown Allergies SOCIAL HISTORY No smoking Hx information available PLAN OF CARE VITAL SIGNS MEDICATIONS Unknown Medications RESULTS No Results PROCEDURES Procedure Date Ordered Related Diagnosis Body Site RH IG, FULL-DOSE, IM Sep 23, 2016 THER/PROPH/DIAG INJ, SC/IM Sep 23, 2016 IMMUNIZATIONS Vaccine Route Administration Date Status RHOGAM FULL DOSE Unknown Sep 23, 2016 Administered
--- OUTSIDE RECORDS SUMMARY | 2018-09-07 06:19 | XMS REPORT ---
Author Author SLY MANRIQUE [facility] eClinicalWorks Address Unknown Phone Unavailable Care Team Providers Care Staff Air Tactical Officer Name Role Phone SLY MANRIQUE CP Unavailable Allergies No Known Allergies Problems Problem Type Condition Code Onset Dates Condition Status Assessment 29 weeks gestation of Z3A.29 Active Medications No Known Medications Procedures Procedure Coding System Code Date URINE-NO MICRO CPT-4 03924 Aug 25, 2016 Office Visit, Est Pt., Level 3 CPT-4 83434 Aug 25, 2016 Vital Signs Date/Time: Aug 25, 2016 Blood Pressure Systolic 120 mmHg Cardiac Monitoring Heart Rate 90 bpm Weight 237 lbs Blood Pressure Diastolic 80 mmHg Results No Known Results Summary Purpose eClinicalWorks Submission
--- OUTSIDE RECORDS SUMMARY | 2018-09-07 06:19 | XMS REPORT ---
Author Author GERRY VALLES Organization [facility] Address [address] [place] [address] Care Team Providers Care Refuse Collector Supervisor Name Role Phone GERRY VALLES Unavailable PROBLEMS Type Condition ICD9-CM Code [id number] Code Onset Dates Condition Status SNOMED Code Problem Major depressive disorder, recurrent episode, moderate F33.1 Active 675248682 Problem Posttraumatic stress disorder F43.10 Active 26057131 Problem Rh negative status during , second trimester O09.892 Active 122015731 Problem Rh negative status during in third trimester O09.893 Active 104509359 Problem Post traumatic stress disorder F43.10 Active 98433349 Problem Unspecified mood [affective] disorder F39 Active 14135792 ALLERGIES No Information SOCIAL HISTORY Never Assessed PLAN OF CARE Activity Details Follow Up 1 Week Reason:depression VITAL SIGNS MEDICATIONS Unknown Medications RESULTS No Results PROCEDURES Procedure Date Ordered Result Body Site Psychotherapy, patient &/family, 30 minutes, established patient April 05, 2017 IMMUNIZATIONS No Known Immunizations MEDICAL (GENERAL) HISTORY Type Description Date Medical History anxiety Medical History bipolar disorder Medical History depression Medical History lower lumbar scoliosis Medical History migraines Surgical History section x2 Surgical History tonsillectomy Surgical History extraction of tooth Hospitalization History Childbirth Only
--- OUTSIDE RECORDS SUMMARY | 2018-09-07 06:19 | XMS REPORT ---
Author Author SLY MANRIQUE Organization [facility] Address [address] [place] [address] Care Team Providers Care Shearer Helper Name Role Phone SLY MANRIQUE Unavailable PROBLEMS Type Condition ICD9-CM Code [id number] Code Onset Dates Condition Status SNOMED Code Problem Posttraumatic stress disorder F43.10 Active 66964013 Problem Major depressive disorder, recurrent episode, moderate F33.1 Active 705937085 Problem Rh negative status during , second trimester O09.892 Active 161723978 Problem Rh negative status during in third trimester O09.893 Active 816910596 Problem Post traumatic stress disorder F43.10 Active 04068497 Problem Unspecified mood [affective] disorder F39 Active 73276531 ALLERGIES Substance Reaction Event Type Date Status Advair Diskus anaphylaxis Drug Allergy Oct, Active SOCIAL HISTORY No smoking Hx information available PLAN OF CARE Activity Details Follow Up 1 Week Reason: VITAL SIGNS Height 66 in 2016-10-27 Weight 250 lbs 2016-10-27 Temperature 98.8 degrees Fahrenheit 2016-10-27 Heart Rate 90 bpm 2016-10-27 Respiratory Rate 20 2016-10-27 BMI 40.351 kg/m2 2016-10-27 Blood pressure systolic 118 mmHg 2016-10-27 Blood pressure diastolic 84 mmHg 2016-10-27 MEDICATIONS Medication Instructions Dosage Frequency Start Date End Date Duration Status Cephalexin 500 MG Orally 3 times a day 1 capsule 8h Oct, Oct, 10 day(s) Active Active Omeprazole 10 mg Orally Once a day 2 capsules 24h Sep, 30 day(s ) Active Sertraline HCl 25 MG Orally Once a day 1 tablet 24h Sep, 30 day (s) Active RESULTS Name Result Date Reference Range UA OB DIP (IN HOUSE) 2016-10-27 Glucose negative Protein negative PROCEDURES Procedure Date Ordered Related Diagnosis Body Site Office Visit, Est Pt., Level 3 Oct 27, 2016 URINE-NO MICRO Oct 27, 2016 IMMUNIZATIONS No Known Immunizations
--- OUTSIDE RECORDS SUMMARY | 2018-09-07 06:19 | XMS REPORT ---
Author TRACY Skelton [facility] eClinicalWorks Address Unknown Phone Unavailable Care Team Providers Care Avionics Electrical Engineer Name Role Phone TRACY LAMBERT CP Unavailable Allergies, Adverse Reactions, Alerts Substance Reaction Event Type N.K.D.A. Info Not Available Non Drug Allergy Problems No Known Problems Medications No Known Medications Results No Known Results Summary Purpose eClinicalWorks Submission
--- OUTSIDE RECORDS SUMMARY | 2018-09-07 06:19 | XMS REPORT ---
Author SLY Castro [facility] eClinicalWorks Address Unknown Phone Unavailable Care Team Providers Care Trademark Affixer Name Role Phone SLY MANRIQUE Unavailable Allergies No Known Allergies Problems Problem Type Condition Code Onset Dates Condition Status Assessment Normal in multigravida Z34.80 Active Medications Medication Code System Code Instructions Start Date End Date Status Dosage [facility] [id number] not defined Procedures Procedure Coding System Code Date Office Visit, Est Pt., Level 3 CPT-4 33437 Sep 08, 2016 URINE-NO MICRO CPT-4 74426 Sep 08, 2016 Vital Signs Date/Time: Sep 08, 2016 Blood Pressure Systolic 132 mmHg Cardiac Monitoring Heart Rate 88 bpm Weight 241.9 lbs Blood Pressure Diastolic 84 mmHg Results Name Result Date Reference Range Unit Abnormality Flag UA OB DIP (IN HOUSE) ----Glucose Negative [id number] ----Protein Negative [id number] Summary Purpose eClinicalWorks Submission
--- OUTSIDE RECORDS SUMMARY | 2018-09-07 06:19 | XMS REPORT ---
Author Author SLY MANRIQUE Organization [facility] Address [address] [place] [address] Care Team Providers Care Industrial Relations Manager Name Role Phone SLY MANRIQUE Unavailable PROBLEMS Type Condition ICD9-CM Code [id number] Code Onset Dates Condition Status SNOMED Code Problem Posttraumatic stress disorder F43.10 Active 83722817 Problem Major depressive disorder, recurrent episode, moderate F33.1 Active 421734125 Problem Rh negative status during , second trimester O09.892 Active 776617780 Problem Rh negative status during in third trimester O09.893 Active 837434252 Problem Post traumatic stress disorder F43.10 Active 81834756 Problem Unspecified mood [affective] disorder F39 Active 36863775 ALLERGIES Unknown Allergies SOCIAL HISTORY No smoking Hx information available PLAN OF CARE Activity Details Follow Up 1 Week Reason: VITAL SIGNS Height 66 in 2016-10-20 Weight 250 lbs 2016-10-20 Temperature 98.7 degrees Fahrenheit 2016-10-20 Heart Rate 100 bpm 2016-10-20 Respiratory Rate 18 2016-10-20 BMI 40.351 kg/m2 2016-10-20 Blood pressure systolic 130 mmHg 2016-10-20 Blood pressure diastolic 82 mmHg 2016-10-20 MEDICATIONS Medication Instructions Dosage Frequency Start Date End Date Duration Status Omeprazole 10 mg Orally Once a day 2 capsules 24h Sep, 30 day(s ) Active Sertraline HCl 25 MG Orally Once a day 1 tablet 24h Sep, 30 day (s) Active Active RESULTS No Results PROCEDURES Procedure Date Ordered Related Diagnosis Body Site URINE-NO MICRO Oct 20, 2016 Office Visit, Est Pt., Level 3 Oct 20, 2016 IMMUNIZATIONS No Known Immunizations
--- OUTSIDE RECORDS SUMMARY | 2018-09-07 06:19 | XMS REPORT ---
Author Author SLY MANRIQUE Organization [facility] Address [address] [place] [address] Care Team Providers Care Supervisor Sintering Plant Name Role Phone SLY MANRIQUE Unavailable PROBLEMS Type Condition ICD9-CM Code GIS16-MR Code Onset Dates Condition Status SNOMED Code Problem Major depressive disorder, recurrent episode, moderate F33.1 Active 245094529 Problem Posttraumatic stress disorder F43.10 Active 42638366 Problem Rh negative status during , second trimester O09.892 Active 980166631 Problem Rh negative status during in third trimester O09.893 Active 201722891 Problem Post traumatic stress disorder F43.10 Active 50120824 Problem Unspecified mood [affective] disorder F39 Active 77318649 ALLERGIES Substance Reaction Event Type Date Status Advair Diskus anaphylaxis Drug Allergy Oct, Active SOCIAL HISTORY No smoking Hx information available PLAN OF CARE Activity Details Follow Up 6 Weeks Reason: VITAL SIGNS Height 66 in 2016-11-03 Weight 252.6 lbs 2016-11-03 Temperature 98.8 degrees Fahrenheit 2016-11-03 Heart Rate 90 bpm 2016-11-03 Respiratory Rate 20 2016-11-03 BMI 40.771 kg/m2 2016-11-03 Blood pressure systolic 127 mmHg 2016-11-03 Blood pressure diastolic 83 mmHg 2016-11-03 MEDICATIONS Medication Instructions Dosage Frequency Start Date End Date Duration Status Cephalexin 500 MG Orally 3 times a day 1 capsule 8h Oct, Oct, 10 day(s) Active Active Omeprazole 10 mg Orally Once a day 2 capsules 24h Sep, 30 day(s ) Active Sertraline HCl 25 MG Orally Once a day 1 tablet 24h Sep, 30 day (s) Active RESULTS No Results PROCEDURES Procedure Date Ordered Related Diagnosis Body Site Office Visit, Est Pt., Level 3 Nov 03, 2016 IMMUNIZATIONS No Known Immunizations
--- OUTSIDE RECORDS SUMMARY | 2018-09-07 06:19 | XMS REPORT ---
Author Author LIS BROWNING Organization [facility] Address [address] [place] [address] Care Team Providers Care Mail Messenger Name Role Phone LIS BROWNING Unavailable PROBLEMS Type Condition ICD9-CM Code PRX28-WA Code Onset Dates Condition Status SNOMED Code Problem Major depressive disorder, recurrent episode, moderate F33.1 Active 339813836 Problem Posttraumatic stress disorder F43.10 Active 18465881 Problem Rh negative status during , second trimester O09.892 Active 410781114 Problem Rh negative status during in third trimester O09.893 Active 797778672 Problem Post traumatic stress disorder F43.10 Active 69474554 Problem Unspecified mood [affective] disorder F39 Active 72803758 ALLERGIES No Information SOCIAL HISTORY Never Assessed PLAN OF CARE VITAL SIGNS MEDICATIONS Unknown Medications RESULTS No Results PROCEDURES No Known procedures IMMUNIZATIONS No Known Immunizations MEDICAL (GENERAL) HISTORY Type Description Date Medical History anxiety Medical History bipolar disorder Medical History depression Medical History lower lumbar scoliosis Medical History migraines Surgical History section x2 Surgical History tonsillectomy Surgical History extraction of tooth Hospitalization History Childbirth Only
--- OUTSIDE RECORDS SUMMARY | 2018-09-07 06:19 | XMS REPORT ---
Author SLY Castro [facility] eClinicalWorks Address Unknown Phone Unavailable Care Team Providers Care Bee Robber Name Role Phone SLY MANRIQUE CP Unavailable Allergies No Known Allergies Problems Problem Type Condition Code Onset Dates Condition Status Assessment Third trimester at less than 36 weeks Z33.1 Active Medications Medication Code System Code Instructions Start Date End Date Status Dosage Sertraline HCl [facility] 2] [address]-62 25 MG Orally Once a day Sep 22, 2016 1 tablet Omeprazole [facility] [place] 2] [address]-51 10 mg Orally Once a day Sep 22, 2016 2 capsules [facility] [place] 2] [address] not defined Procedures Procedure Coding System Code Date Office Visit, Est Pt., Level 3 CPT-4 96571 Sep 22, 2016 URINE-NO MICRO CPT-4 02321 Sep 22, 2016 Vital Signs Date/Time: Sep 22, 2016 Blood Pressure Systolic 153 mmHg Cardiac Monitoring Heart Rate 92 bpm Weight 243.0 lbs Blood Pressure Diastolic 82 mmHg Results No Known Results Summary Purpose eClinicalWorks Submission
--- OUTSIDE RECORDS SUMMARY | 2018-09-07 06:19 | XMS REPORT ---
Author Author GERRY VALLES Organization [facility] Address [address] [place] [address] Care Team Providers Care Bulker Name Role Phone GERRY VALLES Unavailable PROBLEMS Type Condition ICD9-CM Code ZDQ39-US Code Onset Dates Condition Status SNOMED Code Problem Major depressive disorder, recurrent episode, moderate F33.1 Active 448897738 Problem Posttraumatic stress disorder F43.10 Active 77500980 Problem Rh negative status during , second trimester O09.892 Active 767418471 Problem Rh negative status during in third trimester O09.893 Active 910672522 Problem Post traumatic stress disorder F43.10 Active 72751473 Problem Unspecified mood [affective] disorder F39 Active 57484898 ALLERGIES No Information ENCOUNTERS Encounter Location Date Diagnosis [place] [id number] [place] [address] Apr, Posttraumatic stress disorder F43.10 and Major depressive disorder, recurrent episode, moderate F33.1 [place] [address] [place] [address] Apr, Posttraumatic stress disorder F43.10 and Major depressive disorder, recurrent episode, moderate F33.1 [place] [address] [place] [address] Apr, [place] [address] [place] [id number] [place] [address] Apr, Unspecified mood [affective] disorder F39 and Post traumatic stress disorder F43.10 [facility] [address] [place] [address] Apr, Post traumatic stress disorder F43.10 and Unspecified mood [ affective] disorder F39 [facility] [address] [place] [id number] [place] [address] March, Unspecified mood [affective] disorder F39 [facility] [address] [place] [address] Dec, [place] [address] [place] [id number] [place] [address] Oct, 39 weeks gestation of Z3A.39 [place] [address] [place] [id number] [place] [address] Oct, 38 weeks gestation of Z3A.38 [place] [address] [place] [id number] [place] [address] Oct, Third trimester at less than 36 weeks Z33.1 [place] [address] [place] [id number] [place] [address] 07 Oct, 2016 Normal in multigravida Z34.80 [place] [address] [address] Sep, 35 weeks gestation of Z3A.35 [place] [address] [place] [id number] [place] [address] 17 Sep, 2016 Rh negative status during in third trimester O09.893 [place] [address] [place] [id number] [place] [address]- [address] 16 Sep, 2016 Third trimester at less than 36 weeks Z33.1 [place] [address] [place] [id number] [place] [address] 02 Sep, 2016 Normal in multigravida Z34.80 [place] [address] [place] [address] Aug, 29 weeks gestation of Z3A.29 [place] [address] [place] [id number] [place] [address] Aug, 29 weeks gestation of Z3A.29 [place] [address] [place] [id number] [place] [address] Aug, Normal in multigravida Z34.80 [facility] [address] [facility] [id number] [place] [address] Jun, IMMUNIZATIONS No Known Immunizations SOCIAL HISTORY Never Assessed REASON FOR VISIT Phone call 04/13/2017 PLAN OF CARE VITAL SIGNS MEDICATIONS Unknown [...]
--- OUTSIDE RECORDS SUMMARY | 2018-09-07 06:19 | XMS REPORT ---
Author Author SLY MANRIQUE Organization [facility] Address [address] [place] [address] Care Team Providers Care Certified Pharmacy Tech Name Role Phone SLY MANRIQUE Unavailable PROBLEMS Type Condition ICD9-CM Code KBM19-BU Code Onset Dates Condition Status SNOMED Code Assessment Normal in multigravida Z34.80 Oct, Active ALLERGIES Substance Reaction Event Type Date Status Advair Diskus anaphylaxis Drug Allergy Oct, Active SOCIAL HISTORY No smoking Hx information available PLAN OF CARE VITAL SIGNS Weight 248 lbs 2016-10-13 Heart Rate 100 bpm 2016-10-13 Respiratory Rate 20 2016-10-13 Blood pressure systolic 134 mmHg 2016-10-13 Blood pressure diastolic 84 mmHg 2016-10-13 MEDICATIONS Medication Instructions Dosage Frequency Start Date End Date Duration Status Sertraline HCl 25 MG Orally Once a day 1 tablet 24h Sep, 30 day (s) Active Omeprazole 10 mg Orally Once a day 2 capsules 24h Sep, 30 day(s ) Active Active RESULTS Name Result Date Reference Range UA OB DIP (IN HOUSE) 2016-10-13 Glucose negative Protein trace PROCEDURES Procedure Date Ordered Related Diagnosis Body Site URINE-NO MICRO Oct 13, 2016 Office Visit, Est Pt., Level 3 Oct 13, 2016 IMMUNIZATIONS No Known Immunizations
--- OUTSIDE RECORDS SUMMARY | 2018-09-07 06:19 | XMS REPORT ---
Author Author GERRY VALLES Organization [facility] Address [address] [place] [address] Care Team Providers Care Physical Chemistry Teacher Name Role Phone GERRY VALLES Unavailable PROBLEMS Type Condition ICD9-CM Code JHR60-NJ Code Onset Dates Condition Status SNOMED Code Problem Major depressive disorder, recurrent episode, moderate F33.1 Active 303595396 Problem Posttraumatic stress disorder F43.10 Active 64092062 Problem Rh negative status during , second trimester O09.892 Active 374450517 Problem Rh negative status during in third trimester O09.893 Active 699103844 Problem Post traumatic stress disorder F43.10 Active 83831677 Problem Unspecified mood [affective] disorder F39 Active 36932267 ALLERGIES No Information SOCIAL HISTORY Never Assessed PLAN OF CARE Activity Details Follow Up Next available Reason:depression and anxiety VITAL SIGNS MEDICATIONS Unknown Medications RESULTS No Results PROCEDURES Procedure Date Ordered Result Body Site Psychotherapy, patient &/family, 45 minutes, established patient April 12, 2017 IMMUNIZATIONS No Known Immunizations MEDICAL (GENERAL) HISTORY Type Description Date Medical History anxiety Medical History bipolar disorder Medical History depression Medical History lower lumbar scoliosis Medical History migraines Surgical History section x2 Surgical History tonsillectomy Surgical History extraction of tooth Hospitalization History Childbirth Only
--- OUTSIDE RECORDS SUMMARY | 2018-09-07 06:19 | XMS REPORT ---
Author SLY Castro [facility] eClinicalWorks Address Unknown Phone Unavailable Care Team Providers Care Panel Machine Operator Name Role Phone SLY MANRIQUE CP Unavailable Allergies No Known Allergies Problems Problem Type Condition Code Onset Dates Condition Status Assessment 29 weeks gestation of Z3A.29 Active Medications No Known Medications Procedures Procedure Coding System Code Date VENIPUNCT, ROUTINE* CPT-4 59504 Sep 02, 2016 LAB NOT BILLED BY [facility] CPT-4 NOBLL Sep 02, 2016 Results Name Result Date Reference Range Unit Abnormality Flag ROUTINE VENIPUNCTURE Summary Purpose eClinicalWorks Submission
--- OUTSIDE RECORDS SUMMARY | 2018-09-07 06:19 | XMS REPORT ---
Author Author SLY MANRIQUE Organization [facility] Address [address] [place] [address] Care Team Providers Care Drug Safety Assistant Name Role Phone SLY MANRIQUE Unavailable PROBLEMS Type Condition ICD9-CM Code [id number] Code Onset Dates Condition Status SNOMED Code Problem Major depressive disorder, recurrent episode, moderate F33.1 Active 467844813 Problem Posttraumatic stress disorder F43.10 Active 41281988 Problem Rh negative status during , second trimester O09.892 Active 710643184 Problem Rh negative status during in third trimester O09.893 Active 518502082 Problem Post traumatic stress disorder F43.10 Active 49528297 Problem Unspecified mood [affective] disorder F39 Active 87285992 ALLERGIES Substance Reaction Event Type Date Status Advair Diskus anaphylaxis Drug Allergy Feb, Active ENCOUNTERS Encounter Location Date Diagnosis [place] [id number] [place] [address] 76503- 9561 Jun, [place] [id number] [place] [address] 85406- 2182 Jun, Second trimester Z34.92 [place] [id number] [place] [address] 25401- 3133 Jun, BMI 40.0-44.9, adult Z68.41 and Second trimester Z34.92 [place] [address] [place] [address] 15404- 7588 Jun, Screening for deficiency anemia Z13.0 [place] [id number] [place] [address] 19980- 8791 May, Second trimester Z33.1 [place] [id number] [place] [address] 87128- 2853 Apr, Encounter for supervision of normal in second trimester Z34.92 [facility] [address], [place] [address] March, care in second trimester Z34.92 [facility] [address] [place] [address] 27574- 6456 Feb, Normal in multigravida Z34.80 [facility] [id number] [place] [address] 41583- 4340 Jan, [place] [id number] [place] [address] 37155- 5709 Jan, Encounter for test, result unknown Z32.00 [place] [id number] [place] [address] 93276- 2450 Apr, Posttraumatic stress disorder F43.10 and Major depressive disorder, recurrent episode, moderate F33.1 [place] [id number] [place] [address] 66897- 5897 Apr, Posttraumatic stress disorder F43.10 and Major depressive disorder, recurrent episode, moderate F33.1 [place] [id number] [place] [address] 30583- 9765 Apr, [place] [id number] [place] [address] 80745- 1596 Apr, Unspecified mood [affective] disorder F39 and Post traumatic stress disorder F43.10 [place] [id number] [place] [address] 55149- 9490 Apr, Post traumatic stress disorder F43.10 and Unspecified mood [ affective] disorder F39 [place] [id number] [place] [address] 70430- 5313 March, Unspecified mood [affective] disorder F39 [facility] [address] [place] [address] Dec, [facility] [id number] [place] [address] 19535- 2005 Oct, 39 weeks gestation of Z3A.39 [facility] [address], [place] [address] Oct, 38 weeks gestation of Z3A.38 [facility] [address] [address] 14 Oct, 2016 Third trimester at less than 36 weeks Z33.1 [facility] [id number] [place] [address] 65311- 0692 07 Oct, 2016 Normal in multigravida Z34.80 [place] [id number] [place] [address] 90532- 8787 Sep, 35 weeks gestation of Z3A.35 [place] [id number] [place] [address] 54532- 6668 17 Sep, 2016 Rh negative status during in third trimester O09.893 [place] [id number] [place] [address] 99989- 1246 16 Sep, 2016 Third trimester at less than 36 weeks Z33.1 [place] [id number] [place] [address] 67884- 7008 02 Sep, 2016 Normal in multigravida Z34.80 [place] [address], [place] [address] Aug, 29 weeks gestation of Z3A.29 [place] [id number] [place] [address] 40992- 6935 Aug, 29 weeks gestation of Z3A.29 [place] [address] [place] [address] 40004- 0873 Aug, Normal in multigravida Z34.80 [place] [address], [place] [address] Jun, IMMUNIZATIONS No Known Immunizations SOCIAL HISTORY Never Assessed REASON FOR VISIT OB-intake--CarleyleachMA, Pt explains she is spotting, has severe depression and anxiety PLAN OF CARE Activity Details Follow Up 4 Weeks Reason: VITAL SIGNS Height 66 in 2018-02-22 Weight 239.5 lbs 2018-02-22 Temperature 98.6 degrees Fahrenheit 2018-02-22 Heart Rate 90 bpm 2018-02-22 Respiratory Rate 20 2018-02-22 BMI 38.656 kg/m2 2018-02-22 Blood pressure systolic 122 mmHg 2018-02-22 Blood pressure diastolic 88 mmHg 2018-02-22 MEDICATIONS Medication Instructions Dosage Frequency Start Date End Date Duration Status Active Prozac 20 mg Orally Once a [...] tablet 24h Feb, 30 day (s) Active RESULTS No Results PROCEDURES Procedure Date Ordered Result Body Site No Charge February 22, 2018 [facility] February 22, 2018 URINALYSIS, AUTO, W/O SCOPE February 22, 2018 VENIPUNCT, ROUTINE* February 22, 2018 INSTRUCTIONS MEDICATIONS ADMINISTERED No Known Medications MEDICAL (GENERAL) HISTORY Type Description Date Medical History anxiety Medical History depression Medical History lower lumbar scoliosis Medical History migraines Surgical History section x2 Surgical History tonsillectomy Surgical History extraction of tooth Hospitalization History Childbirth Only
--- OUTSIDE RECORDS SUMMARY | 2018-09-07 06:19 | XMS REPORT ---
Author Author TRACY LAMBERT [facility] Address [address] [place] [address] Care Team Providers Care Tack Puller Machine Name Role Phone FAUSTO TRACY Unavailable PROBLEMS Type Condition ICD9-CM Code [id number] Code Onset Dates Condition Status SNOMED Code Problem Major depressive disorder, recurrent episode, moderate F33.1 Active 063141664 Problem Posttraumatic stress disorder F43.10 Active 49923863 Problem Rh negative status during , second trimester O09.892 Active 356688018 Problem Rh negative status during in third trimester O09.893 Active 835910645 Problem Post traumatic stress disorder F43.10 Active 77752192 Problem Unspecified mood [affective] disorder F39 Active 19151221 ALLERGIES No Information ENCOUNTERS Encounter Location Date Diagnosis [place] [address] [place] [address] 46212- 7033 Jun, [place] [id number] [place] [address] 38816- 8280 11 May, 2018 Second trimester Z33.1 [place] [address] [place] [address] 25488- 5595 13 Apr, 2018 Encounter for supervision of normal in second trimester Z34.92 [facility] [address] [place] [address] 57776- 6396 March, care in second trimester Z34.92 [facility] [id number] [place] [address] 19213- 1827 Feb, Normal in multigravida Z34.80 [facility] [address] [place] [address] 28106- 3800 Jan, [facility] [id number] [place] [address] 37558- 7772 Jan, Encounter for test, result unknown Z32.00 [facility] [id number] [place] [address] 15585- 1780 20 Apr, 2017 Posttraumatic stress disorder F43.10 and Major depressive disorder, recurrent episode, moderate F33.1 [facility] [id number] [place] [address] 70190- 7228 13 Apr, 2017 Posttraumatic stress disorder F43.10 and Major depressive disorder, recurrent episode, moderate F33.1 [facility] [id number] [place] [address] 37140- 7836 Apr, [place] [id number] [place] [address] 34527- 0579 Apr, Unspecified mood [affective] disorder F39 and Post traumatic stress disorder F43.10 [place] [id number] [place] [address] 90190- 0480 Apr, Post traumatic stress disorder F43.10 and Unspecified mood [ affective] disorder F39 [place] [id number] [place] [address] 09601- 2168 March, Unspecified mood [affective] disorder F39 [facility] [address] [place] [address] Dec, [place] [id number] [place] [address] 63284- 8425 Oct, 39 weeks gestation of Z3A.39 [place] [id number] [place] [address] 39048- 1558 Oct, 38 weeks gestation of Z3A.38 [place] [id number] [place] [address] 67269- 7837 14 Oct, 2016 Third trimester at less than 36 weeks Z33.1 [facility] [id number] [place] [address] 69314- 7103 07 Oct, 2016 Normal in multigravida Z34.80 [place] [address] [place] [address] 8310 30 Sep, 2016 35 weeks gestation of Z3A.35 [place] [id number] [place] [address] 537224- 4988 17 Sep, 2016 Rh negative status during in third trimester O09.893 [place] [address] [place] [address] 2870 16 Sep, 2016 Third trimester at less than 36 weeks Z33.1 [place] [id number] [place] [address] 76468- 5267 02 Sep, 2016 Normal in multigravida Z34.80 [place] [id number] [place] [address] 187027- 2925 Aug, 29 weeks gestation of Z3A.29 [place] [id number] [place] [address] 96804- 0966 Aug, 29 weeks gestation of Z3A.29 [place] [address] [place] [address] 90648- 9059 Aug, Normal in multigravida Z34.80 [place] [id number] [place] [address] 41345- 7452 Jun, IMMUNIZATIONS No Known Immunizations SOCIAL HISTORY Never Assessed REASON FOR VISIT Lab (walk-in), urine PLAN OF CARE VITAL SIGNS MEDICATIONS Unknown Medications RESULTS Name Result Date Reference Range TEST, URINE (IN HOUSE) 2018-02-01 RESULTS Positive Lot # [id number] Control + Exp date 05/2019 PROCEDURES Procedure Date Ordered Result Body Site URINE TEST February 01, 2018 INSTRUCTIONS MEDICATIONS ADMINISTERED No Known Medications MEDICAL (GENERAL) HISTORY Type Description Date Medical History anxiety Medical History depression Medical History lower lumbar scoliosis Medical History migraines Surgical History section x2 Surgical History tonsillectomy Surgical History extraction of tooth Hospitalization History Childbirth Only
--- OUTSIDE RECORDS SUMMARY | 2018-09-07 06:20 | XMS REPORT | Continuity of Care Document ---
Author Author [facility] Organization [facility] Address Unknown Phone Unavailable Allergies Active Description Code Type Severity Reaction Onset Reported/Identified Relationship to Patient Clinical Status Yes ADVAIR ADVAIR Mild N/A 03/27/2016 Yes fluticasone [id number] Drug Allergy Unknown N/A 11/05/2016 Yes salmeterol [id number] Drug Allergy Unknown N/A 11/05/2016 Medications There is no data. Problems Date Dx Coded Attending Type Code Diagnosis Diagnosed By 03/27/2016 Ot 649.63 UTERINE SIZE DATE DISCREPANCY, ANTEPARTU 03/27/2016 TIKA WALKER Ot E86.9 VOLUME DEPLETION, UNSPECIFIED 03/27/2016 KARISSA WALKEREN L Ot R11.10 VOMITING, UNSPECIFIED 03/27/2016 PRASAD WALKERTCHEN L Ot R51 HEADACHE 03/27/2016 PRASAD WALKERTCHEN L Ot Z33.1 STATE, INCIDENTAL 03/27/2016 Ot 649.63 UTERINE SIZE DATE DISCREPANCY, ANTEPARTU 03/29/2016 TIKA WALKER Ot E86.9 VOLUME DEPLETION, UNSPECIFIED 03/29/2016 KARISSA WALKEREN L Ot R11.10 VOMITING, UNSPECIFIED 03/29/2016 KARISSA WALKEREN L Ot R51 HEADACHE 03/29/2016 KARISSA WALKEREN L Ot Z33.1 STATE, INCIDENTAL 04/16/2016 TIKA WALKER Ot E86.9 VOLUME DEPLETION, UNSPECIFIED 04/16/2016 TIKA WALKER L Ot R11.10 VOMITING, UNSPECIFIED 04/16/2016 KARISSA WALKEREN L Ot R51 HEADACHE 04/16/2016 PRASAD WALKERTCHEN L Ot Z33.1 STATE, INCIDENTAL 08/16/2016 Ot 649.63 UTERINE SIZE DATE DISCREPANCY, ANTEPARTU 08/17/2016 Ot 649.63 UTERINE SIZE DATE DISCREPANCY, ANTEPARTU 08/18/2016 SLY MANRIQUE MD, Ot O09.42 SUPRVSN OF W GRAND MULTIPARITY 08/18/2016 SLY MANRIQUE MD, Ot Z3A.27 27 WEEKS GESTATION OF 08/18/2016 TIKA WALKER Ot L05.01 PILONIDAL CYST WITH ABSCESS 08/18/2016 TIKA WALKER Ot O99.89 OTH DISEASES AND CONDITIONS COMPL PREG/C 08/18/2016 TIKA WALKER Ot Z3A.28 28 WEEKS GESTATION OF 08/19/2016 KARISSA WALKEREN L Ot L05.01 PILONIDAL CYST WITH ABSCESS 08/19/2016 KARISSA WALKEREN L Ot O99.89 OTH DISEASES AND CONDITIONS COMPL PREG/C 08/19/2016 TIKA WALKER Ot Z3A.28 28 WEEKS GESTATION OF 08/19/2016 TIKA WALKER Ot L05.01 PILONIDAL CYST WITH ABSCESS 08/19/2016 TIKA WALKER Ot O99.89 OTH DISEASES AND CONDITIONS COMPL PREG/C 08/19/2016 TIKA WALKER Ot Z3A.28 28 WEEKS GESTATION OF 08/27/2016 GILES WHITE APRN Ot L05.01 PILONIDAL CYST WITH ABSCESS 08/27/2016 GILES WHITE APRN Ot Z48.03 ENCOUNTER FOR CHANGE OR REMOVAL OF DRAIN 08/30/2016 GILES WHITE APRN Ot L05.01 PILONIDAL CYST WITH ABSCESS 08/30/2016 GILES WHITE APRN Ot Z48.03 ENCOUNTER FOR CHANGE OR REMOVAL OF DRAIN 09/03/2016 SLY MANRIQUE MD Ot O09.42 SUPRVSN OF W GRAND MULTIPARITY 09/03/2016 SLY MANRIQUE MD, Ot Z3A.27 27 WEEKS GESTATION OF 09/16/2016 SLY MANRIQUE MD, Ot Z36 ENCOUNTER FOR SCREENING OF MOT 09/16/2016 SLY MANRIQUE MD, Ot Z3A.32 32 WEEKS GESTATION OF 09/20/2016 Ot 649.63 UTERINE SIZE DATE DISCREPANCY, ANTEPARTU 09/20/2016 SLY MANRIQUE MD, Ot O09.42 SUPRVSN OF W GRAND MULTIPARITY 09/20/2016 SLY MANRIQUE MD, Ot Z3A.27 27 WEEKS GESTATION OF 09/20/2016 SLY MANRIQUE MD, Ot Z36 ENCOUNTER FOR SCREENING OF MOT 09/20/2016 SLY MANRIQUE MD, Ot Z3A.32 32 WEEKS GESTATION OF 10/04/2016 SLY MANRIQUE MD, Ot Z36 ENCOUNTER FOR SCREENING OF MOT 10/04/2016 SLY MANRIQUE MD, Ot3A.32 32 WEEKS GESTATION OF 11/02/2016 CINTIAECH NICOLAS KATHLEEN S Ot O34.211 MATERN CARE FOR LOW TRANSVERSE SCAR FROM 11/02/2016 CINTIAECH DONICOLAS S Ot Z01.818 ENCOUNTER FOR OTHER PREPROCEDURAL EXAMIN 11/02/2016 CINTIAECH NICOLAS KATHLEEN S Ot Z11.2 ENCOUNTER FOR SCREENING FOR OTHER BACTER 11/03/2016 CINTIAECH NICOLAS KATHLEEN S Ot O34.211 MATERN CARE FOR LOW TRANSVERSE SCAR FROM 11/03/2016 CINTIAECH NICOLAS KATHLEEN S Ot Z01.818 ENCOUNTER FOR OTHER PREPROCEDURAL EXAMIN 11/03/2016 CINTIAECH NICOLAS KATHLEEN S Ot Z11.2 ENCOUNTER FOR SCREENING FOR OTHER BACTER 11/07/2016 CINTIAECH NICOLAS KATHLEEN S Ot O34.211 MATERN CARE FOR LOW TRANSVERSE SCAR FROM 11/07/2016 NICOLAS GARVIN DO S Ot O64.1XX0 OBSTRUCTED LABOR DUE TO BREECH PRESENTAT 11/07/2016 NICOLAS GARVIN DO S Ot Z37.0 SINGLE LIVE 11/07/2016 NICOLAS GARVIN DO S Ot Z3A.39 39 WEEKS GESTATION OF 11/24/2016 TIKA WALKER Ot L05.01 PILONIDAL CYST WITH ABSCESS 11/25/2016 TIKA WALKER Ot L05.01 PILONIDAL CYST WITH ABSCESS 02/22/2018 SLY MANRIQUE MD, Ot O09.42 SUPRVSN OF W GRAND MULTIPARITY 02/22/2018 SLY MANRIQUE MD, Ot Z3A.27 27 WEEKS GESTATION OF 02/22/2018 SLY MANRIQUE MD, Ot Z36 ENCOUNTER FOR SCREENING OF MOT 02/22/2018 SLY MANRIQUE MD, Ot Z3A.32 32 WEEKS GESTATION OF 02/28/2018 HILARIA MD, SLY J Ot O09.42 SUPRVSN OF W GRAND MULTIPARITY 02/28/2018 SLY MANRIQUE MD, Ot Z3A.27 27 WEEKS GESTATION OF 02/28/2018 SLY MANRIQUE MD, Ot Z36 ENCOUNTER FOR SCREENING OF MOT 02/28/2018 SLY MANRIQUE MD, Ot Z3A.32 32 WEEKS GESTATION OF 03/03/2018 SLY MANRIQUE MD, Ot Z34.81 ENCOUNTER FOR SUPRVSN OF NORMAL PREGNANC 03/03/2018 SLY MANRIQUE MD, Ot Z3A.12 12 WEEKS GESTATION OF 03/03/2018 SLY MANRIQUE MD, Ot Z34.81 ENCOUNTER FOR SUPRVSN OF NORMAL PREGNANC 03/03/2018 SLY MANRIQUE MD, Ot Z3A.12 12 WEEKS GESTATION OF 04/17/2018 SLY MANRIQUE MD, Ot Z34.81 ENCOUNTER FOR SUPRVSN OF NORMAL PREGNANC 04/17/2018 SLY MANRIQUE MD, Ot Z3A.12 12 WEEKS GESTATION OF 04/28/2018 SLY MANRIQUE MD Ot Z34.92 ENCNTR FOR SUPRVSN OF NORMAL PREG, UNSP, 04/28/2018 SLY MANRIQUE MD, Ot Z3A.20 20 WEEKS GESTATION OF 05/15/2018 SLY MANRIQUE MD, Ot Z34.92 ENCNTR FOR SUPRVSN OF NORMAL PREG, UNSP, 05/15/2018 SLY MANRIQUE MD, Ot Z3A.20 20 WEEKS GESTATION OF 08/31/2018 VIRGIE DONICOLAS S Ot Z01.818 ENCOUNTER FOR OTHER PREPROCEDURAL EXAMIN 08/31/2018 CINTIAECH NICOLAS KATHLEEN Ot Z01.818 ENCOUNTER FOR OTHER PREPROCEDURAL EXAMIN 08/31/2018 CINTIAECH NICOLAS KATHLEEN S Ot Z01.818 ENCOUNTER FOR OTHER PREPROCEDURAL EXAMIN 09/01/2018 NICOLAS GARVIN DO Ot Z01.818 ENCOUNTER FOR OTHER PREPROCEDURAL EXAMIN 09/01/2018 SLY MANRIQUE MD Ot O62.2 OTHER UTERINE INERTIA 09/01/2018 SLY MANRIQUE MD, Ot Z3A.36 36 WEEKS GESTATION OF 09/03/2018 SLY MANRIQUE MD, Ot O62.2 OTHER UTERINE INERTIA 09/03/2018 HILARIA SUBRAMANIAN, SLY Vance Ot Z3A.36 36 WEEKS GESTATION OF Procedures Code Description Performed By Performed On [id number] EXTRACTION OF POC, LOW CERVICAL, OPEN AP 11/05/2016 Results Test Result Range Pap Lb, rfx HPV ASCU - 08/11/16 16:56 DIAGNOSIS: Comment Specimen adequacy: Comment Clinician provided ICD10: Comment Performed by: Comment . . Note: Comment . Comment Genital Culture, Routine - 08/11/16 16:57 Genital Culture, Routine Note CBC With Differential/Platelet - 08/11/16 16:57 WBC 17.6 x10E3/uL 3.4-10.8 RBC 4.35 x10E6/uL 3.77-5.28 Hemoglobin 12.5 g/dL 11.1-15.9 Hematocrit 37.1 % 34.0-46.6 MCV 85 fL 79-97 MCH 28.7 pg 26.6-33.0 MCHC 33.7 g/dL 31.5-35.7 RDW 13.7 % 12.3-15.4 Platelets 207 x10E3/uL 150-379 Neutrophils 71 % Lymphs 20 % Monocytes 6 % Eos 1 % Basos 0 % Neutrophils (Absolute) 12.4 x10E3/uL 1.4-7.0 Lymphs (Absolute) 3.6 x10E3/uL 0.7-3.1 Monocytes(Absolute) 1.0 x10E3/uL 0.1-0.9 Eos (Absolute) 0.2 x10E3/uL 0.0-0.4 Baso (Absolute) 0.1 x10E3/uL 0.0-0.2 Immature Granulocytes 2 % Immature Grans (Abs) 0.3 x10E3/uL 0.0-0.1 ABO Grouping and Rho(D) Typing - 08/11/16 16:57 ABO Grouping O Rh Factor Negative Rubella Antibodies, IgG - 08/11/16 16:57 Rubella Antibodies, IgG 1.63 index Immune >0.99 TSH - 08/11/16 16:57 TSH 4.020 uIU/mL 0.450-4.500 Antibody Screen - 08/11/16 16:57 Antibody Screen Negative Negative Urine Culture, Routine - 08/11/16 16:57 Urine Culture, Routine Note Gram stain microscopy - 08/18/16 15:57 Bacteria identification in wound by culture - 08/18/16 15:57 Bacteria identification in wound by culture [id number] NR FREE TEXT EXTERNAL SEE COMMENTS NRG QUANTITY OF GROWTH . NRG Gest. Diabetes 1-Hr Screen - 09/02/16 15:31 Gestational Diabetes Screen 94 mg/dL 65-139 Methicillin resistant Staphylococcus aureus (MRSA) screening culture - 12:21 Methicillin resistant Staphylococcus aureus (MRSA) screening culture NEG NRG Complete blood count (CBC) with automated white blood cell (WBC) differential - 11/05/16 08:14 Blood leukocytes automated count (number/volume) 13.5 10*3/uL 4.3-11.0 Blood erythrocytes automated count (number/volume) 4.03 10*6/uL 4.35-5.85 Venous blood hemoglobin measurement (mass/volume) 11.2 g/dL 11.5-16.0 Blood hematocrit (volume fraction) 34 % 35-52 Automated erythrocyte mean corpuscular volume 84 [foz_us] 80-99 Automated erythrocyte mean corpuscular hemoglobin (mass per erythrocyte) 28 pg 25-34 Automated erythrocyte mean corpuscular hemoglobin concentration measurement ( mass/volume) 33 g/dL 32-36 Automated erythrocyte distribution width ratio 13.6 % 10.0-14.5 Automated blood platelet count (count/volume) 189 10*3/uL 130-400 Automated blood platelet mean volume measurement 11.4 [foz_us] 7.4-10.4 Automated blood neutrophils/100 leukocytes 73 % 42-75 Automated blood lymphocytes/100 leukocytes 19 % 12-44 Blood monocytes/100 leukocytes 7 % 0-12 Automated blood eosinophils/100 leukocytes 1 % 0-10 Automated blood basophils/100 leukocytes 0 % 0-10 Blood neutrophils automated count (number/volume) 9.9 10*3 1.8-7.8 Blood lymphocytes automated count (number/volume) 2.6 10*3 1.0-4.0 Blood monocytes automated count (number/volume) 0.9 10*3 0.0-1.0 Automated eosinophil count 0.1 10*3/uL 0.0-0.3 Automated blood basophil count (count/volume) 0.0 10*3/uL 0.0-0.1 Blood type T Indirect antibody screen panel - 11/05/16 08:14 ABO+Rh group ON NRG Transfusion band number [id number] NRG Blood group antibody screen NEGATIVE NRG Complete blood count (CBC) with automated white blood cell (WBC) differential - 11/06/16 05:31 Blood leukocytes automated count (number/volume) 12.5 10*3/uL 4.3-11.0 Blood erythrocytes automated count (number/volume) 3.39 10*6/uL 4.35-5.85 Venous blood hemoglobin measurement (mass/volume) 9.4 g/dL 11.5-16.0 Blood hematocrit (volume fraction) 29 % 35-52 Automated erythrocyte mean corpuscular volume 85 [foz_us] 80-99 Automated erythrocyte mean corpuscular hemoglobin (mass per erythrocyte) 28 pg 25-34 Automated erythrocyte mean corpuscular hemoglobin concentration measurement ( mass/volume) 33 g/dL 32-36 Automated erythrocyte distribution width ratio 13.6 % 10.0-14.5 Automated blood platelet count (count/volume) 150 10*3/uL 130-400 Automated blood platelet mean volume measurement 11.2 [foz_us] 7.4-10.4 Automated blood neutrophils/100 leukocytes 66 % 42-75 Automated blood lymphocytes/100 leukocytes 23 % 12-44 Blood monocytes/100 leukocytes 9 % 0-12 Automated blood eosinophils/100 leukocytes 2 % 0-10 Automated blood basophils/100 leukocytes 0 % 0-10 Blood neutrophils automated count (number/volume) 8.3 10*3 1.8-7.8 Blood lymphocytes automated count (number/volume) 2.9 10*3 1.0-4.0 Blood monocytes automated count (number/volume) 1.1 10*3 0.0-1.0 Automated eosinophil count 0.2 10*3/uL 0.0-0.3 Automated blood basophil count (count/volume) 0.0 10*3/uL 0.0-0.1 RH IMMUNE GLOBULIN RHOPHYLAC - 11/06/16 05:31 RH IMMUNE GLOBULIN RHOPHYLAC PRSMD TRFSD 11/07/16 1250 NRG cell screen - 11/06/16 05:31 SCREEN LOT NUMBER [id number] NRG Transfusion band number [id number] [facility] [id number] 1 300ug NRG Erythrocytes./1000 erythrocytes 11/12/16 NRG cell screen NEGATIVE NEGATIVE cell screen 09/18/18 [facility] Lot number [id number] [facility] CBC - 06/09/18 14:08 WHITE BLOOD CELL COUNT 13.4 Thousand/uL 3.8-10.8 RED BLOOD CELL COUNT 3.99 Million/uL 3.80-5.10 HEMOGLOBIN 11.9 g/dL 11.7-15.5 HEMATOCRIT 34.3 % 35.0-45.0 MCV 86.0 fL 80.0-100.0 MCH 29.8 pg 27.0-33.0 MCHC 34.7 g/dL 32.0-36.0 RDW 12.6 % 11.0-15.0 PLATELET COUNT 191 Thousand/uL 140-400 MPV 11.4 fL 7.5-12.5 ABSOLUTE NEUTROPHILS 81520 cells/uL 9246-0417 ABSOLUTE LYMPHOCYTES 2412 cells/uL 850-3900 ABSOLUTE MONOCYTES 777 cells/uL 200-950 ABSOLUTE EOSINOPHILS 161 cells/uL 15-500 ABSOLUTE BASOPHILS 40 cells/uL 0-200 NEUTROPHILS 74.7 % NRG LYMPHOCYTES 18.0 % NRG MONOCYTES 5.8 % NRG EOSINOPHILS 1.2 % NRG BASOPHILS 0.3 % NRG Encounters ACCT No. Visit Date/Time Discharge Status Pt. Type Provider Facility Loc./Unit Complaint [id number] 08/31/2018 14:30:00 08/31/2018 15:07:00 DIS Outpatient NICOLAS GARVIN DO [facility] PREOP PREVIOUS X2 [id number] 08/24/2018 17:56:00 08/24/2018 20:38:00 DIS Outpatient SLY MANRIQUE MD [facility] WSo CONTRACTIONS [id number] 04/27/2018 13:39:00 04/27/2018 23:59:59 CLS Outpatient SLY MANRIQUE MD [facility] RAD SUPERVISION OF NORMAL IN SECOND TRI [id number] 03/02/2018 11:24:00 03/02/2018 23:59:59 CLS Outpatient SLY MANRIQUE MD [facility] RAD Z34.80 [id number] 11/24/2016 10:12:00 11/24/2016 11:55:00 DIS Emergency TIKA WALKER [facility] ER TAILBONE ABSCESS [id number] 11/05/2016 07:21:00 11/07/2016 19:45:00 DIS Inpatient NICOLAS GARVIN DO [facility] LDRP PREVIOUS SECTION [id number] 11/02/2016 12:02:00 11/02/2016 12:25:00 DIS Outpatient NICOLAS GARVIN DO [facility] PREOP PREVIOUS SECTION [id number] 09/15/2016 11:19:00 09/15/2016 23:59:59 CLS Outpatient SLY MANRIQUE MD [facility] RAD Z34.80 [id number] 08/27/2016 21:02:00 08/27/2016 21:36:00 DIS Emergency GILES WHITE APRN [facility] ER NEEDS A DRAIN REMOVED ON TAILBONE [id number] 08/18/2016 14:43:00 08/18/2016 16:05:00 DIS Emergency TIKA WALKER [facility] ER POSS ABSCESS ON TAILBONE 28 WKS PREG [id number] 08/16/2016 12:08:00 08/16/2016 23:59:59 CLS Outpatient SLY MANRIQUE MD [facility] RAD NORMAL IN MULTIGRAVIDA [id number] 03/27/2016 19:39:00 03/27/2016 23:26:00 DIS Emergency TIKA WALKER [facility] ER VOMITING [id number] 09/07/2018 07:30:00 PEN Preadmit CINTIAHARJINDER NICOLAS KATHLEEN PREVIOUS X2 [id number] 11/11/2011 10:57:00 Document Registration [id number] 06/09/2018 13:00:00 06/09/2018 23:59:59 CLS Outpatient TRACY LAMBERT DO [facility] [id number] 06/09/2018 13:00:00 Document Registration [id number] 08/13/2016 18:06:00 Document Registration [id number] 08/14/2016 13:05:00 Document Registration [id number] 09/03/2016 08:43:00 Document Registration [id number] 08/13/2016 18:05:00 Document Registration
--- OUTSIDE RECORDS SUMMARY | 2018-09-07 06:20 | XMS REPORT ---
Author SLY Castro [facility] eClinicalWorks Address Unknown Phone Unavailable Care Team Providers Care Allergist/Md Name Role Phone SLY MANRIQUE CP Unavailable Allergies, Adverse Reactions, Alerts Substance Reaction Event Type Advair Diskus anaphylaxis Drug Allergy Problems Problem Type Condition Code Onset Dates Condition Status Assessment Normal in multigravida Z34.80 Active Medications No Known Medications Procedures Procedure Coding System Code Date DRUG SCREEN NON TLC DEVICES CPT-4 06370 Aug 11, 2016 BAUM VAG, DNA, DIR PROBE CPT-4 26029 Aug 11, 2016 [facility] C[facility]-4 NOBLL Aug 11, 2016 VENIPUNCT, ROUTINE* CPT-4 57275 Aug 11, 2016 URINALYSIS, AUTO, W/O SCOPE CPT-4 29708 Aug 11, 2016 SPECIMEN HANDLING CPT-4 82191 Aug 11, 2016 Office Visit, Est Pt., Level 4 CPT-4 72118 Aug 11, 2016 URINE-NO MICRO CPT-4 01662 Aug 11, 2016 Vital Signs Date/Time: Aug 11, 2016 Blood Pressure Systolic 120 mmHg Cardiac Monitoring Heart Rate 86 bpm Weight 234.9 lbs Blood Pressure Diastolic 82 mmHg Results Name Result Date Reference Range Unit Abnormality Flag PDF Report ----PDF Report1 [facility] [id number] UA LONG DIP (IN HOUSE) ----NIT Negative 20160811 ----ALFREDO Negative 20160811 ----Lot # [id number] ----Exp date 20160811 ----Clarity cloudy 20160811 ----Color dark yellow 20160811 ----Odor yes 20160811 ----URO 1.0 20160811 ----GLU Negative 20160811 ----Protein 1+ 20160811 ----KENNETH 1+ 20160811 ----pH 6.0 20160811 ----KET Negative 20160811 ----BLO Trace-Intact 20160811 ----SG >1.030 20160811 URINE DRUG SCREEN (IN HOUSE) ----AMPH Negative 20160811 ----COCAINE Negative 20160811 ----THC Negative 20160811 ----MTD Negative 20160811 ----BENZO Negative 20160811 ----OPIATE Negative 20160811 ----BUP Negative 20160811 ----MDMA Negative 20160811 ----Lot # [id number] ----Control + 20160811 ----Exp date 20160811 ----PCP Negative 20160811 ----TCA Negative 20160811 ----MAMP Negative 20160811 ----OXY Negative 20160811 ----BAR Negative 20160811 BACTERIAL VAGINOSIS (IN HOUSE) ----Lot # [id number] ----Exp date 20160811 ----RESULTS negative 20160811 ----Control + [id number] UA OB DIP (IN HOUSE) ----Protein Negative 20160811 ----Glucose Negative 20160811 PAP TEST, HPV IF ASCUS ----. . [id number] CBC ----Basos 0 61930739 % ----MCV 85 54600413 79-97 fL ----Hematocrit 37.1 51173815 34.0-46.6 % ----Eos 1 90321480 % ----MCHC 33.7 29515656 31.5-35.7 g/dL ----Monocytes 6 43160966 % ----MCH 28.7 61583198 26.6-33.0 pg ----Lymphs 20 34738573 % ----Eos (Absolute) 0.2 22047349 0.0-0.4 x10E3/uL ----WBC 17.6 32158021 3.4-10.8 x10E3/uL H ----Monocytes(Absolute) 1.0 18145805 0.1-0.9 x10E3/uL H ----Lymphs (Absolute) 3.6 00550684 0.7-3.1 x10E3/uL H ----Hemoglobin 12.5 79218639 11.1-15.9 g/dL ----Neutrophils (Absolute) 12.4 91486870 1.4-7.0 x10E3/uL H ----RBC 4.35 72652948 3.77-5.28 x10E6/uL ----Immature Grans (Abs) 0.3 88375875 0.0-0.1 x10E3/uL H ----Immature Granulocytes 2 86390079 % ----Neutrophils 71 08831654 % ----Baso (Absolute) 0.1 61523217 0.0-0.2 x10E3/uL ----RDW 13.7 60013221 12.3-15.4 % ----Platelets 207 13779938 150-379 x10E3/uL ROUTINE VENIPUNCTURE TSH () ----TSH 4.020 [id number] 0.450-4.500 uIU/mL CULTURE, URINE ----Urine Culture, Routine Final report [id number] ----Result 1 No growth [id number] RUBELLA ANTIBODIES, IgG ----Rubella Antibodies, IgG 1.63 20160811 Immune >0.99 index CULTURE, GENITAL ----Genital Culture, Routine Final report [id number] ANTIBODY SCREEN ----Antibody Screen Negative 20160811 Negative BLOOD TYPE/RH FACTOR ----Rh Factor Negative 20160811 ----ABO Grouping O [id number] Summary Purpose eClinicalWorks Submission
[2018-09-07] MEDS ORDERED: CATHETER FLUSH 10 ML SYR IV PRN (06:45)
[2018-09-07] MEDS ORDERED: CITRIC ACID/SOB CIT (BICITRA) 30 ML UDC PO ONE (06:45)
[2018-09-07] MEDS ORDERED: ceFAZolin 2 GM IV Premixed 50 ML IV ONE (06:45)
[2018-09-07] MEDS ORDERED: METOCLOPRAMIDE INJ 10 MG/2 ML (REGLAN) IV ONE (06:45)
[2018-09-07] MEDS ORDERED: ceFAZolin 2 GM IV Premixed 50 ML ONE (06:52)
[2018-09-07 06:58] LABS: BASOPHILS % (AUTO) 0 % (0-10); EOSINOPHILS # (AUTO) 0.3 10^3/uL (0.0-0.3); EOSINOPHILS % (AUTO) 2 % (0-10); HEMATOCRIT 36 % (35-52); HEMOGLOBIN 11.6 G/DL (11.5-16.0); LYMPHOCYTES # (AUTO) 2.9 X 10^3 (1.0-4.0); LYMPHOCYTES % (AUTO) 20 % (12-44); MEAN CORPUSCULAR HEMOGLOBIN 27 PG (25-34); MEAN CORPUSCULAR HGB CONC 33 G/DL (32-36); MEAN CORPUSCULAR VOLUME 83 FL (80-99); MEAN PLATELET VOLUME 11.4 FL (7.4-10.4); MONOCYTES # (AUTO) 1.1 X 10^3 (0.0-1.0); MONOCYTES % (AUTO) 7 % (0-12); NEUTROPHILS # (AUTO) 10.7 X 10^3 (1.8-7.8); NEUTROPHILS % (AUTO) 71 % (42-75); PLATELET COUNT 218 10^3/uL (130-400); RED BLOOD COUNT 4.31 10^6/uL (4.35-5.85); RED CELL DISTRIBUTION WIDTH 14.8 % (10.0-14.5)
[2018-09-07] MEDS ORDERED: FAMOTIDINE 20MG/2ML IV (PEPCID) IV ONE (07:00)
[2018-09-07] MEDS ORDERED: OXYTOCIN/NORMAL SALINE 1,000 ML IV ONE (07:08)
[2018-09-07] MEDS ORDERED: LIDOCAINE PF 2% 5 ML (XYLOCAINE) VIAL ONE (07:09)
[2018-09-07] MEDS ORDERED: fentaNYL INJECTION 100 MCG/2 ML AMP ONE (07:09)
[2018-09-07] MEDS ORDERED: KETAMINE HCL 100 MG/ML 5 ML VIAL ONE (07:12)
[2018-09-07 07:15] VITALS: BP 123/69
--- NOTE | 2018-09-07 07:27 | History & Physical-OB ---
OB - Chief Complaint & HPI Date/Time Date of Admission: Date of Admission: Sep 07, 2018 at 6:00 am Date seen by a Provider: Sep 07, 2018 Time Seen by a Provider: 07:15 Chief Complaint/History OB-Reason for Admission/Chief: Section Hx : 3 Hx Para: 2 Expected Date of Delivery: Sep 08, 2018 Gestational Age in Weeks: 39 Gestational Age in Days: 6 Admission Nurse Assessment Rev: Yes History of Labs O neg Antibody neg RI RPR NR HBsAg HIV NR GC neg GBS unknown Allergies and Home Medications Allergies Coded Allergies: fluticasone (Unverified Allergy, Unknown, 11/05/16) salmeterol (Unverified Allergy, Unknown, 11/05/16) Home Medications Metoclopramide HCl 10 Mg Tablet, 10 MG PO PRN PRN for NAUSEA/VOMITING, (Reported ) Vit No.124/Iron/FA 1 Each Tablet, 1 EACH PO DAILY, (Reported) Sertraline HCl 25 Mg Tablet, 25 MG PO HS, (Reported) Patient Home Medication List Home Medication List Reviewed: Yes OB - History Hx of Present Care: Yes Ultrasounds: Normal mid trimester US Obstetrical Complications: None Medical Complications: None Delivery History Hx Blood Disorders: No Adverse Rxn to Tranfusion: No Patient Past Medical History anxiety/depression Social History/Family History HIV/AIDS: No Recent Infectious Disease Expo: No Sexually Transmitted Disease: No Alcohol Use: Denies Use Recreational Drug Use: No Immunizations Tetanus Booster (TDap): Unknown OB - Admission Exam Physical Exam HEENT: NCAT Heart: Rhythm Normal Lungs: Clear Abdomen: Gravid Extremities: Normal Reflexes: Normal Membranes: Intact Heart Rate: 130's Accelerations: Accelerations Present Decelerations: No Decelerations Short Term Variability: Present Fpc Variability: Average (6-25) Contractions on Admission: >10 Minutes Apart Intensity: Mild Labs Laboratory Tests Test 09/07/18 06:45 Range/Units White Blood Count 15.0 H 4.3-11.0 10^3/uL Red Blood Count 4.31 L 4.35-5.85 10^6/uL Hemoglobin 11.6 11.5-16.0 G/DL Hematocrit 36 35-52 % Mean Corpuscular Volume 83 80-99 FL Mean Corpuscular Hemoglobin 27 25-34 PG Mean Corpuscular Hemoglobin Concent 33 32-36 G/DL Red Cell Distribution Width 14.8 H 10.0-14.5 % Platelet Count 218 130-400 10^3/uL Mean Platelet Volume 11.4 H 7.4-10.4 FL Neutrophils (%) (Auto) 71 42-75 % Lymphocytes (%) (Auto) 20 12-44 % Monocytes (%) (Auto) 7 0-12 % Eosinophils (%) (Auto) 2 0-10 % Basophils (%) (Auto) 0 0-10 % Neutrophils # (Auto) 10.7 H 1.8-7.8 X 10^3 Lymphocytes # (Auto) 2.9 1.0-4.0 X 10^3 Monocytes # (Auto) 1.1 H 0.0-1.0 X 10^3 Eosinophils # (Auto) 0.3 0.0-0.3 10^3/uL Basophils # (Auto) 0.0 0.0-0.1 10^3/uL OB - Assessment/Plan/Diagnosis Assessment Assessment: section Admission Dx 23 yo @ 39 Previous x 2 Admission Status: Inpatient Order (span 2 midnights) Reason for Inpatient Admission: Repeat Plan Plan: Section NICOLAS GARVIN DO Sep 07, 2018 7:27 am
[2018-09-07] MEDS ORDERED: ceFAZolin 1,000 MG/10 ML (ANCEF) VIAL IV ONE (07:41)
[2018-09-07] MEDS: KETOROLAC 30 MG/ML VIAL IVP SCH ×3 (08:10→21:10)
[2018-09-07] MEDS ORDERED: KETOROLAC 30 MG/ML VIAL ONE (08:10)
[2018-09-07] MEDS ORDERED: ONDANSETRON 4 MG/2 ML (SDV) Z0FRAN IVP PRN ×2 (08:15→08:30)
[2018-09-07] MEDS ORDERED: BUPIVACAINE SPINAL 0.75% (SENSORCAINE) 2 ML AMP ONE (08:16)
[2018-09-07 08:29] LABS: BAND NEUTROPHILS 1 %; BASOPHILS % (MANUAL) 0 %; EOSINOPHILS % (MANUAL) 4 %; LYMPHOCYTES % (MANUAL) 23 %; MONOCYTES % (MANUAL) 4 %; NEUTROPHILS % (MANUAL) 68 %
[2018-09-07 08:30] LABS: RBC MORPH NORMAL
[2018-09-07] MEDS ORDERED: OXYTOCIN/NORMAL SALINE 500 ML IV SCH (08:30)
[2018-09-07] MEDS ORDERED: MEASLES,MUMPS,RUBELLA 1 EA INJ SC SCH (08:30)
[2018-09-07] MEDS ORDERED: TETANUS,DIPTH,PERTUSS P/F (BOOSTRIX) 0.5 ML VIAL IM SCH (08:30)
[2018-09-07] MEDS ORDERED: HYDROmorphone 2 MG/ML VIAL (DILAUDID) IV PRN (08:30)
--- NOTE | 2018-09-07 08:35 | Discharge Inst-Women's Service ---
Discharge Inst-Women's Serv Depart Medication/Instructions New, Converted or Re-Newed RX: RX on Chart Consults/Follow Up Additional Follow Up: Yes Orders/Referrals Dr. Carreon in 7-[address] Buenrostro in 6 weeks Activity Activity: Activity as Tolerated Driving Instructions: No Driving for 1 Week NO SMOKING: NO SMOKING Nothing Inside Vagina: No Douching, No [place], No Tampons Diet Discharge Diet: No Restrictions Symptoms to Report to : Bleeding Excessive, Pain Increased, Fever Over 101 Degrees F, Vaginal Bleeding Increase, Questions/Concerns For Any Problems or Questions: Contact Your Physician Skin/Wound Care Infection Signs and Symptoms: Increased Redness, Foul Odor of Wound, Increased Drainage, Skin Itchy or Has a Rash, Increased Swelling, Temperature Above 101 F Operative Area Clean and Dry: Keep Incision Clean/Dry Stitches/[place]/Dermabond: Dermabond, Care of Stitches Bathing Instructions: NICOLAS Perez DO Sep 07, 2018 8:35 am
[2018-09-07] MEDS ORDERED: DOCU100C37 PO (08:38)
[2018-09-07] MEDS ORDERED: ACHD5005 PO (08:38)
[2018-09-07] MEDS ORDERED: IBUP-844 PO (08:38)
[2018-09-07] MEDS ORDERED: OXYTOCIN/NORMAL SALINE 500 ML IV ONE (08:51)
[2018-09-07] MEDS ORDERED: BUPIVACAINE 0.5% 30 ML (SENSORCAINE) VIAL ONE (08:52)
[2018-09-07 10:00] VITALS: BP 130/85
[2018-09-07] MEDS ORDERED: FLU QUADRIvalent (5+ YOA) 2018-2019 (AFLURIA) 0.5 ML IM ONE (11:00)
[2018-09-07] MEDS: HYDROcodone/APAP 5 MG/325 MG (LORTAB) TAB PO PRN ×2 (11:09→18:07)
[2018-09-07 12:00] VITALS: BP 126/82
--- NOTE | 2018-09-07 13:03 | OPERATIVE REPORT ---
DATE OF SERVICE: PREOPERATIVE DIAGNOSES: 1. A 23-year-old G3, P2 at 39 weeks gestation. 2. Previous section x2. POSTOPERATIVE DIAGNOSES: 1. A 23-year-old G3, P2 at 39 weeks gestation. 2. Previous section x2. PROCEDURE: Repeat low transverse section. SURGEON: Javier Garvin DO WATER TEAM LEADER: Dr. Ray Buenrostro. ANESTHESIA: Spinal. ESTIMATED BLOOD LOSS: 350 mL. URINE OUTPUT: 200 mL clear at the end of the procedure. FLUIDS: 1700 mL of lactated Ringer's solution. FINDINGS: A live male weighing 8 pounds 2 ounces, Apgars 8 and 9. Grossly normal appearing uterus, fallopian tubes and ovaries. SPECIMENS SENT: None. INDICATIONS FOR PROCEDURE: A 23-year-old female is a consultation to me from Dr. Buenrostro for repeat , seen her in the office previously and her was uncomplicated at that point. In the preoperative area again, it was reviewed with the patient the risks of procedure. After all of her questions were answered, consent was obtained in the preoperative area. The patient was taken to the operating room. OPERATIVE REPORT IN DETAIL: Once in the operating room, spinal anesthesia was found to be adequate, she was placed in supine position with a leftward tilt, prepped and draped in normal sterile fashion. Timeout was performed and anesthesia was tested. I then performed a Pfannenstiel skin incision to the previously existing scar using a knife and carried down to the underlying fascia using Bovie cautery. Fascial incision extended laterally using Bovie cautery. Superior aspect of the fascial incision was then grasped with Domingo clamps, tented up and dissected off the underlying rectus muscles. The inferior aspect of fascial incision was then grasped with Domingo clamps, tented up and dissected off the underlying rectus muscles. The rectus muscle was then dissected down the midline using Metzenbaum scissors were exposed. The peritoneum was entered bluntly and extended using blunt traction. The Franco ring retractor was placed in the peritoneal incision, which offered excellent lateral sidewall retraction. I then identified the lower uterine segment, which was found to be thinned out. I made an incision in the vesicouterine peritoneum and bluntly dissected off the lower uterine segment. I proceeded with my myotomy until membranes were visualized, at which point I extended the uterine incision laterally and superiorly using bandage scissors. Clear fluid was noted at the time of rupture of membranes. The was found in the vertex presentation. With gentle fundal pressure, the infant's head was delivered to the incision where anterior and posterior shoulders were delivered. The nares and oropharynx were bulb suctioned and the was then brought to the operative field where the cord was doubly clamped and cut and infant was handed off to Dr. Buenrostro for further attendance. Cord blood was collected. Three-vessel cord with intact placenta was delivered spontaneously thereafter. IV Pitocin was initiated to facilitate uterine contraction. Uterine fundus became firmer with bimanual massage. Uterus was then exteriorized and cleared of endometrial clots and debris. I then proceeded to close the uterine incision using 0 Vicryl suture in running locked fashion. Second layer of imbricating 0 Monocryl was placed. Excellent hemostasis was noted after doing this. I then placed the uterus back in the pelvis and copiously irrigated the pelvis using normal saline. Once again, there was no active bleeding noted from any of my dissection planes. I then placed Interceed antiadhesive over my low transverse incision. I proceeded with closing the peritoneum using 3-0 Vicryl suture in a running fashion. The rectus muscle was reapproximated using 3-0 Vicryl suture in interrupted fashion. The fascia was reapproximated using 0 Vicryl suture in running fashion. Subcutaneous tissue was reapproximated using 3-0 plain in interrupted subcutaneous stitch and skin was reapproximated using 4-0 Monocryl in a running subcuticular. Dermabond was applied to incision and sterile dressing with adhesive white tape. The patient tolerated the procedure well and was taken to recovery in stable condition. Lap and sponge counts were correct at the end of the procedure. Instrument counts were correct as well. Two grams of Ancef were given preoperatively for infection prophylaxis. Job ID: [id number] DocumentID: [id number] Dictated Date: 09/07/2018 08:50:40 [employer] Technician Date: 09/07/2018 13:03:11 Dictated By: JAVIER GARVIN DO
[2018-09-07] MEDS ORDERED: CATHETER FLUSH 10 ML SYR IV SCH (14:00)
[2018-09-07 16:00] VITALS: BP 116/80
[2018-09-07] MEDS: guaiFENesin/DM (ROBITUSSIN DM) 10 ML UDC PO PRN (18:12)
[2018-09-07 20:00] VITALS: BP 142/83
[2018-09-07] MEDS: DOCUSATE SODIUM 100 MG (COLACE) CAP PO SCH ×2 (21:33→21:39)
[2018-09-07 23:30] VITALS: BP 128/77
[2018-09-08 04:10] VITALS: BP 133/83
[2018-09-08] MEDS: KETOROLAC 30 MG/ML VIAL IVP SCH (04:10)
[2018-09-08] MEDS: CATHETER FLUSH 10 ML SYR IV SCH ×2 (04:10→04:17)
[2018-09-08] MEDS: HYDROcodone/APAP 5 MG/325 MG (LORTAB) TAB PO PRN ×4 (04:58→20:45)
[2018-09-08] MEDS: guaiFENesin/DM (ROBITUSSIN DM) 10 ML UDC PO PRN ×3 (04:58→20:45)
[2018-09-08 05:16] LABS: BASOPHILS % (AUTO) 0 % (0-10); EOSINOPHILS # (AUTO) 0.3 10^3/uL (0.0-0.3); EOSINOPHILS % (AUTO) 2 % (0-10); HEMATOCRIT 28 % (35-52); LYMPHOCYTES # (AUTO) 2.9 X 10^3 (1.0-4.0); LYMPHOCYTES % (AUTO) 23 % (12-44); MEAN CORPUSCULAR HEMOGLOBIN 27 PG (25-34); MEAN CORPUSCULAR HGB CONC 32 G/DL (32-36); MEAN CORPUSCULAR VOLUME 85 FL (80-99); MEAN PLATELET VOLUME 11.4 FL (7.4-10.4); MONOCYTES % (AUTO) 8 % (0-12); NEUTROPHILS # (AUTO) 8.3 X 10^3 (1.8-7.8); NEUTROPHILS % (AUTO) 66 % (42-75); PLATELET COUNT 141 10^3/uL (130-400); RED BLOOD COUNT 3.34 10^6/uL (4.35-5.85); RED CELL DISTRIBUTION WIDTH 14.1 % (10.0-14.5); WHITE BLOOD COUNT 12.6 10^3/uL (4.3-11.0)
[2018-09-08 08:00] VITALS: BP 117/72
--- NOTE | 2018-09-08 08:39 | Postpartum Progress Note ---
Note Note Day # 1 Subjective: Patient is without complaints. Ambulating, voiding. Tolerating a regular diet without nausea or vomiting. Normal lochia. Pain is well controlled with oral pain medications. Objective: Vital Sign - Last 24 Hours 09/07/18 09/07/18 09/07/18 09/07/18 10:00 10:53 12:00 16:00 Temp 98.4 98.6 98.4 Pulse 83 88 98 Resp 20 20 20 B/P (MAP) 130/85 (100) 126/82 (97) 116/80 (92) Pulse Ox 96 97 97 O2 Delivery Room Air Room Air Room Air Room Air 09/07/18 09/07/18 09/08/18 20:00 23:30 04:10 Temp 97.0 97.2 99.0 Pulse 94 84 79 Resp 20 20 20 B/P (MAP) 142/83 (102) 128/77 (94) 133/83 (100) Pulse Ox 97 97 97 O2 Delivery Room Air Room Air Room Air Intake and Output 09/07/18 09/07/18 09/08/18 15:00 23:00 07:00 Intake Total 1800 ml 1750 ml 1100 ml Output Total 450 ml 800 ml 1500 ml Balance 1350 ml 950 ml -400 ml Physical Exam: General - Alert and oriented, no apparent distress Abdomen - Soft, appropriately tender to palpation, non-distended, fundus firm at umbilicus Extremities - no edema, negative Chandu's bilaterally Incision- c/d/i Assessment: POD 1 RLTCS Acute blood loss anemia Plan: Routine care. Encourage breast feeding. Encourage ambulation. Ferrous sulfate supplementation. Plan for discharge tomorrow Vitals - Labs Vital Signs - I&O Vital Signs Date Time Temp Pulse Resp B/P (MAP) Pulse Ox O2 Delivery O2 Flow Rate FiO2 09/08/18 04:10 99.0 79 20 133/83 (100) 97 Room Air 09/07/18 23:30 97.2 84 20 128/77 (94) 97 Room Air 09/07/18 20:00 97.0 94 20 142/83 (102) 97 Room Air 09/07/18 16:00 98.4 98 20 116/80 (92) 97 Room Air 09/07/18 12:00 98.6 88 20 126/82 (97) 97 Room Air 09/07/18 10:53 Room Air 09/07/18 10:00 98.4 83 20 130/85 (100) 96 Room Air I & O 09/08/18 07:00 Intake Total 4650 ml Output Total 2750 ml Balance 1900 ml Labs Laboratory Tests 09/08/18 04:44: White Blood Count 12.6H, Red Blood Count 3.34L, Hemoglobin 9.0#L, Hematocrit 28L , Mean Corpuscular Volume 85, Mean Corpuscular Hemoglobin 27, Mean Corpuscular Hemoglobin Concent 32, Red Cell Distribution Width 14.1, Platelet Count 141, Mean Platelet Volume 11.4H, Neutrophils (%) (Auto) 66, Lymphocytes (%) (Auto) 23 , Monocytes (%) (Auto) 8, Eosinophils (%) (Auto) 2, Basophils (%) (Auto) 0, Neutrophils # (Auto) 8.3H, Lymphocytes # (Auto) 2.9, Monocytes # (Auto) 1.0, Eosinophils # (Auto) 0.3, Basophils # (Auto) 0.0 NICOLAS GARVIN DO Sep 08, 2018 8:39 am
--- NOTE | 2018-09-08 08:50 | Anesthesia-Regional Post-Op ---
Regional Patient Condition Mental Status: Alert, Oriented x3 Circulation: Same as Pre-Op Headache: Absent Sensation: Full Recovery Motor Block: Absent Post Op Complications Complications None Follow Up Care/Instructions Patient Instructions None needed. Anesthesia/Patient Condition Patient is doing well, no complaints, stable vital signs, no apparent adverse anesthesia problems. No complications reported per nursing. PHONG SCHAEFFER CRNA Sep 08, 2018 08:50
[2018-09-08] MEDS: DOCUSATE SODIUM 100 MG (COLACE) CAP PO SCH ×2 (08:54→20:44)
[2018-09-08] MEDS ORDERED: IBUPROFEN 600 MG (MOTRIN) TAB PO ONE ×3 (08:55→19:32)
[2018-09-08] MEDS: IBUPROFEN 600 MG (MOTRIN) TAB PO SCH ×3 (08:56→20:44)
[2018-09-08 15:00] VITALS: BP 110/64
[2018-09-09] MEDS ORDERED: IBUPROFEN 600 MG (MOTRIN) TAB PO ONE (03:04)
[2018-09-09 03:12] VITALS: BP 107/68
[2018-09-09] MEDS: IBUPROFEN 600 MG (MOTRIN) TAB PO SCH ×2 (03:12→09:08)
[2018-09-09 09:07] VITALS: BP 134/86
[2018-09-09] MEDS: HYDROcodone/APAP 5 MG/325 MG (LORTAB) TAB PO PRN (09:08)
--- NOTE | 2018-09-09 09:22 | Postpartum Progress Note ---
Note Note Day # 2 Subjective: Patient is without complaints. Ambulating, voiding. Tolerating a regular diet without nausea or vomiting. Normal lochia. Pain is well controlled with oral pain medications. Objective: Vital Sign - Last 24 Hours 09/08/18 09/09/18 09/09/18 15:00 03:12 09:07 Temp 98.7 98.4 98.6 Pulse 87 81 96 Resp 18 18 18 B/P (MAP) 110/64 (79) 107/68 (81) 134/86 (102) Pulse Ox 97 98 98 O2 Delivery Room Air Room Air Room Air Intake and Output 09/08/18 09/08/18 09/09/18 15:00 23:00 07:00 Intake Total 1980 ml 500 ml Output Total 2800 ml 700 ml Balance -820 ml -200 ml Physical Exam: General - Alert and oriented, no apparent distress Abdomen - Soft, appropriately tender to palpation, non-distended, fundus firm at umbilicus Extremities - no edema, negative Chandu's bilaterally Incision- c/d/i Assessment: POD 2 RLTCS Plan: Routine care. Encourage breast feeding. Encourage ambulation. Ferrous sulfate supplementation. Plan for discharge today Vitals - Labs Vital Signs - I&O Vital Signs Date Time Temp Pulse Resp B/P (MAP) Pulse Ox O2 Delivery O2 Flow Rate FiO2 09/09/18 09:07 98.6 96 18 134/86 (102) 98 Room Air 09/09/18 03:12 98.4 81 18 107/68 (81) 98 Room Air 09/08/18 15:00 98.7 87 18 110/64 (79) 97 Room Air I & O 09/09/18 07:00 Intake Total 2480 ml Output Total 3500 ml Balance -1020 ml NICOLAS GARVIN DO Sep 09, 2018 9:22 am
--- NOTE | 2018-09-13 11:02 | Physician Query-Final Dx ---
CHU LANDON 09/13/18 1102: Final Diagnosis Give Final Diagnosis Please give Final Diagnosis NICOLAS GARVIN DO 09/13/18 1520: Final Diagnosis Give Final Diagnosis POD 2 RLTCS CHU LANDON Sep 13, 2018 11:02 NICOLAS GARVIN DO Sep 13, 2018 15:20
== END 2018-09-09 12:45 | disposition home or self-care (01) | DRG 788 ==
LOC: LDRP 06:00
PROVIDERS: ADMIT Obstetrics & Gynecology; ATTEND Obstetrics & Gynecology
PROC: 10D00Z1 Extraction of Products of Conception, Low, Open Approach (ICD-10-PCS; principal; 2018-09-07 07:16)
DX: O34.211 Maternal care for low transverse scar from previous cesarean delivery (principal); O90.81 Anemia of the puerperium; O99.343 Other mental disorders complicating pregnancy, third trimester; F41.9 Anxiety disorder, unspecified; F32.9 Major depressive disorder, single episode, unspecified; Z3A.39 39 weeks gestation of pregnancy; Z37.0 Single live birth
CPT/HCPCS: 36415; 83033; 85007; 85025; 85027; 86850; 86900; 86901; 94664